=== PATIENT | male | born 1945 | race Caucasian/White ===

== ENCOUNTER → 2017-07-23 17:56 | Outpatient (CLI) | payer OTHER, MEDICARE, SELFPAY ==
[2017-07-23 18:29] LABS: Hematocrit 38.4 % (41-53); Mean Corpuscular HGB Conc 33.8 % (30-36); Mean Corpuscular Hemoglobin 29.2 PG (26-34); Mean Corpuscular Volume 86.3 fL (80-100); Platelet Count 156 X10^3/uL (150-400); Red Blood Cell Count 4.45 X10^6/uL (4.5-5.9); Red Cell Distribution Width 13.4 % (11.6-14.8)
[2017-07-23 18:44] LABS: Neutrophils Absolute Manual 5320 /uL (3000-5900); Total Cells Counted 100
[2017-07-23 18:45] LABS: Smudge Cells 3+
[2017-07-23 18:46] LABS: Anisocytosis 1+
[2017-07-23 19:07] LABS: Lactate Dehydrogenase 455 U/L (313-618)
== END ==
PROVIDERS: Family Provider Family Medicine; PCP Family Medicine; Visit Provider Internal Medicine Hematology & Oncology
DX: C91.10 Chronic lymphocytic leukemia of B-cell type not having achieved remission (principal)
CPT/HCPCS: 36415; 83615; 85025

== ENCOUNTER → 2017-10-26 16:50 | Outpatient (CLI) | payer OTHER, MEDICARE, SELFPAY ==
[2017-10-26 18:00] LABS: Hematocrit 40.1 % (41-53); Hemoglobin 13.3 g/dL (13.5-17.5); Mean Corpuscular HGB Conc 33.1 % (30-36); Mean Corpuscular Hemoglobin 29.2 PG (26-34); Mean Corpuscular Volume 88.2 fL (80-100); Platelet Count 189 X10^3/uL (150-400); Red Blood Cell Count 4.55 X10^6/uL (4.5-5.9)
[2017-10-26 18:15] LABS: Lactate Dehydrogenase 439 U/L (313-618)
[2017-10-26 19:02] LABS: Smudge Cells 2+; Total Cells Counted 100
[2017-10-26 19:03] LABS: RBC Morphology Normal Morphology
[2017-10-26 19:08] LABS: Neutrophils Absolute Manual 4587 /uL (3000-5900); White Blood Cell Count 41.7 X10^3/uL (4.5-11.0)
== END ==
PROVIDERS: Family Provider Family Medicine; PCP Family Medicine; Visit Provider Internal Medicine Hematology & Oncology
DX: C91.90 Lymphoid leukemia, unspecified not having achieved remission (principal)
CPT/HCPCS: 36415; 82784; 83615; 85025

== ENCOUNTER → 2018-01-29 16:34 | Outpatient (CLI) | payer OTHER, MEDICARE, SELFPAY ==
[2018-01-29 18:03] LABS: Alanine Aminotransferase 34 IU/L (21-72); Albumin 4.5 g/dL (3.5-5.0); Albumin Globulin Ratio 1.7 (1.0-2.8); Alkaline Phosphatase 94 U/L (38-126); Aspartate Aminotransferase 33 IU/L (17-59); Bilirubin Total 0.6 mg/dL (0.2-1.3); Blood Urea Nitrogen 24 mg/dL (9-20); Calcium 9.3 mg/dL (8.4-10.2); Carbon Dioxide 25 mmol/L (22-32); Chloride 104 mmol/L (98-107); Estimated Glomerular Filt Rate > 60.0 mL/min (>60); Globulin 2.7 g/dL (1.7-4.1); Glucose 94 mg/dL (80-110); HEMOLYSIS < 15 (0-50); Lactate Dehydrogenase 414 U/L (313-618); Potassium 4.2 mmol/L (3.4-5.1); Sodium 142 mmol/L (137-145); Total Protein 7.2 g/dL (6.3-8.2)
[2018-01-29 18:20] LABS: Hematocrit 41.5 % (41-53); Hemoglobin 13.6 g/dL (13.5-17.5); Mean Corpuscular HGB Conc 32.7 % (30-36); Mean Corpuscular Volume 88.5 fL (80-100); Platelet Count 207 X10^3/uL (150-400); Red Blood Cell Count 4.69 X10^6/uL (4.5-5.9); Red Cell Distribution Width 13.5 % (11.6-14.8)
[2018-01-29 18:47] LABS: White Blood Cell Count 47.3 X10^3/uL (4.5-11.0)
[2018-01-29 18:48] LABS: Add Manual Diff / Slide Review YES
[2018-01-29 18:49] LABS: Neutrophils Absolute Manual 6149 /uL (3000-5900); RBC Morphology Normal Morphology; Smudge Cells 2+; Total Cells Counted 100
== END ==
PROVIDERS: Internal Medicine Hematology & Oncology; Family Provider Family Medicine; PCP Student in an Organized Health Care Education/Training Program
DX: C91.90 Lymphoid leukemia, unspecified not having achieved remission (principal)
CPT/HCPCS: 36415; 80053; 82784; 83615; 85025

== ENCOUNTER → 2018-04-26 16:45 | Outpatient (CLI) | payer OTHER, MEDICARE, SELFPAY ==
[2018-04-26 19:33] LABS: Hematocrit 42.4 % (41-53); Hemoglobin 13.9 g/dL (13.5-17.5); Mean Corpuscular HGB Conc 32.8 % (30-36); Mean Corpuscular Hemoglobin 28.9 PG (26-34); Mean Corpuscular Volume 87.9 fL (80-100); Platelet Count 164 X10^3/uL (150-400); Red Blood Cell Count 4.83 X10^6/uL (4.5-5.9); Red Cell Distribution Width 13.3 % (11.6-14.8)
[2018-04-26 19:36] LABS: Alanine Aminotransferase 55 IU/L (21-72); Albumin 4.5 g/dL (3.5-5.0); Albumin Globulin Ratio 1.8 (1.0-2.8); Alkaline Phosphatase 106 U/L (38-126); Aspartate Aminotransferase 40 IU/L (17-59); BUN Creatinine Ratio 25.6 (6-22); Bilirubin Total 0.7 mg/dL (0.2-1.3); Blood Urea Nitrogen 23 mg/dL (9-20); Calcium 9.5 mg/dL (8.4-10.2); Carbon Dioxide 24 mmol/L (22-32); Chloride 103 mmol/L (98-107); Estimated Glomerular Filt Rate > 60.0 mL/min (>60); Globulin 2.5 g/dL (1.7-4.1); Glucose 87 mg/dL (80-110); HEMOLYSIS < 15 (0-50); Lactate Dehydrogenase 436 U/L (313-618); Potassium 4.3 mmol/L (3.4-5.1); Sodium 139 mmol/L (137-145)
[2018-04-26 19:54] LABS: Add Manual Diff / Slide Review YES
[2018-04-26 20:11] LABS: Neutrophils Absolute Manual 3208 /uL (3000-5900); RBC Morphology Normal Morphology; Smudge Cells 2+; Total Cells Counted 100
[2018-04-26 20:32] LABS: White Blood Cell Count 40.1 X10^3/uL (4.5-11.0)
== END ==
PROVIDERS: Family Provider Family Medicine; PCP Student in an Organized Health Care Education/Training Program; Visit Provider Internal Medicine Hematology & Oncology
DX: C91.90 Lymphoid leukemia, unspecified not having achieved remission (principal); N40.0 Benign prostatic hyperplasia without lower urinary tract symptoms
CPT/HCPCS: 36415; 80053; 82784; 83615; 84153; 85025

== ENCOUNTER → 2018-05-28 16:43 | Outpatient (CLI) | payer OTHER, MEDICARE, SELFPAY ==
[2018-05-28 18:37] LABS: Prostate Specific Antigen 4.45 ng/mL (0.10-4.00)
== END ==
PROVIDERS: Family Provider Family Medicine; PCP Student in an Organized Health Care Education/Training Program; Visit Provider Student in an Organized Health Care Education/Training Program
DX: R97.20 Elevated prostate specific antigen [PSA] (principal)
CPT/HCPCS: 36415; 84153

== ENCOUNTER → 2018-08-08 15:40 | Outpatient (CLI) | payer OTHER, MEDICARE, SELFPAY ==
[2018-08-08 16:40] LABS: Hematocrit 37.4 % (41-53); Hemoglobin 12.5 g/dL (13.5-17.5); Mean Corpuscular HGB Conc 33.5 % (30-36); Mean Corpuscular Hemoglobin 28.7 PG (26-34); Mean Corpuscular Volume 85.6 fL (80-100); Platelet Count 204 X10^3/uL (150-400); Red Blood Cell Count 4.37 X10^6/uL (4.5-5.9); Red Cell Distribution Width 13.2 % (11.6-14.8)
[2018-08-08 16:47] LABS: Add Manual Diff / Slide Review YES
[2018-08-08 16:48] LABS: White Blood Cell Count 40.5 X10^3/uL (4.5-11.0)
[2018-08-08 17:19] LABS: Neutrophils Absolute Manual 6075 /uL (3000-5900); RBC Morphology Normal Morphology; Smudge Cells 3+; Total Cells Counted 100
== END ==
PROVIDERS: Family Provider Family Medicine; PCP Student in an Organized Health Care Education/Training Program; Visit Provider Student in an Organized Health Care Education/Training Program
DX: C61 Malignant neoplasm of prostate (principal); C91.00 Acute lymphoblastic leukemia not having achieved remission
CPT/HCPCS: 36415; 85025

== ENCOUNTER → 2018-09-27 15:49 | Outpatient (CLI) | payer OTHER, MEDICARE, SELFPAY ==
[2018-09-27 19:11] LABS: Prostate Specific Antigen < 0.064 ng/mL (0.10-4.00)
== END ==
PROVIDERS: Family Provider Family Medicine; PCP Student in an Organized Health Care Education/Training Program; Visit Provider Student in an Organized Health Care Education/Training Program
DX: C61 Malignant neoplasm of prostate (principal); R97.20 Elevated prostate specific antigen [PSA]
CPT/HCPCS: 36415; 84153

== ENCOUNTER → 2018-11-08 16:51 | Outpatient (CLI) | payer OTHER, MEDICARE, SELFPAY ==
[2018-11-08 17:47] LABS: Hematocrit 38.7 % (41-53); Hemoglobin 13.1 g/dL (13.5-17.5); Mean Corpuscular HGB Conc 33.7 % (30-36); Mean Corpuscular Hemoglobin 28.9 PG (26-34); Mean Corpuscular Volume 85.7 fL (80-100); Platelet Count 192 X10^3/uL (150-400); Red Blood Cell Count 4.52 X10^6/uL (4.5-5.9); Red Cell Distribution Width 13.8 % (11.6-14.8)
[2018-11-08 18:01] LABS: Lactate Dehydrogenase 409 U/L (313-618)
[2018-11-08 18:33] LABS: Prostate Specific Antigen < 0.064 ng/mL (0.10-4.00)
[2018-11-08 18:56] LABS: Add Manual Diff / Slide Review YES; White Blood Cell Count 36.6 X10^3/uL (4.5-11.0)
[2018-11-08 18:57] LABS: RBC Morphology Normal Morphology
[2018-11-08 18:58] LABS: Smudge Cells 2+
[2018-11-08 18:59] LABS: Neutrophils Absolute Manual 3660 /uL (3000-5900); Total Cells Counted 100
== END ==
PROVIDERS: PCP Student in an Organized Health Care Education/Training Program; Visit Provider Internal Medicine Hematology & Oncology
DX: C91.90 Lymphoid leukemia, unspecified not having achieved remission (principal)
CPT/HCPCS: 36415; 83615; 84153; 85025

== ENCOUNTER → 2018-12-26 11:43 | Outpatient (CLI) | payer OTHER, MEDICARE, SELFPAY ==
[2018-12-26 14:17] LABS: Prostate Specific Antigen < 0.064 ng/mL (0.10-4.00)
== END ==
PROVIDERS: Family Provider Internal Medicine Hematology & Oncology; PCP Student in an Organized Health Care Education/Training Program; Visit Provider Student in an Organized Health Care Education/Training Program
DX: C61 Malignant neoplasm of prostate (principal)
CPT/HCPCS: 36415; 84153

== ENCOUNTER 2018-12-26 16:00 | Outpatient (RCR) | payer OTHER, MEDICARE, SELFPAY ==
--- NOTE | 2018-12-14 11:29 | PT.OIE ---
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) Urgency of urination (12/05/18) Functional urinary incontinence (12/05/18) Past Medical History (Last Updated 01/01/18 @ 10:18 by Hiral Hu) Chicken pox (Resolved 1949) Chronic headaches (Chronic 1944) CLL (chronic lymphocytic leukemia) (Chronic 1988) Diverticular disease (Chronic 1995) Fractures (Resolved 1992) Hayfever (Chronic 1960) Hypertension (Chronic 1990) Migraines (Chronic 1994) Mumps (Resolved 1949) Ruptured tympanic membrane (Resolved 1990) Shoulder pain (Chronic 1980) Past Surgical History (Last Updated 12/13/18 @ 08:39 by Larissa Newell MA) Anesthesia (Resolved) History of bowel resection (Resolved 2003) History of colonoscopy with polypectomy (Resolved 11/28/16) History of hernia repair (Resolved ~1984) History of surgery (Resolved ~1993) Hx of prostatectomy (Acute) Status post appendectomy (Resolved 2003) Visit Care Team Role Provider Type Jared Arteaga MD Primary Care Provider Physician Specialty: Internal Medicine Address: [address] [place] [address], [address], [address] Email: [email or web address] Jorge Teague Attending Provider Non-Staff Specialty: Urology Address: [address] [place] [address], [id number] Email: Physical Therapy Initial Evaluation PT-OP-A Visit Information Start: 12/11/18 11:01 Freq: Status: Active Protocol: Document 12/05/18 16:00 [facility] (Rec: 12/11/18 11:30 [facility] [email or web address]) Out-Patient Physical Therapy Visit Information Visit Information Visit Type Initial Evaluation Visit Note 73 year old male s/p prostatectomty August 2018 with resulting urinary leakage Visit Start Time 16:00 Visit Stop Time 16:45 Total Visit Minutes 45 Visit Number 1 Evaluation Information Evaluation Date 12/05/18 PT-OP-B Current Condition Start: 12/11/18 11:01 Freq: Status: Active Protocol: Document 12/05/18 16:00 [facility] (Rec: 12/11/18 11:30 [facility] [email or web address]) Current Condition History of Current Condition Onset Date September 2018 Current Complaints urinary leakage that is intermittent in nature History of Current Condition Symptoms of urinary leakage that began in September of 2018 following radical prostatectomy. He notes that his symptoms have been improving as now he is primarily leaking in standing position. 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 He is noting that symptoms are better now in supine or sitting. He has been using 1 pad her day and he does leak occasionally at night. He has been doing pelvic floor exercises but holding only 4 seconds. His current voiding is every hour but he reports this is always the way it has been with his bladder. Other past medical history includes CLL, elevated blood pressure and hernia Treatment Goals Patient/Caregiver Goals To eliminate urinary leakage Prior Functional Status Baseline Function- ADL's Independent Baseline Function- Mobility Independent Baseline Function- Work/School urinary leakage with work related activities Current Functional Impairments (Reported) Functional Limitations- Work/School leaking with work related activities as a diesel electrician especially with bending and transitional movements PT-OP-I Pelvic Floor Start: 12/11/18 11:01 Freq: Status: Active Protocol: Document 12/05/18 16:00 [facility] (Rec: 12/11/18 11:30 [facility] [email or web address]) Pelvic Floor Assessment Urine Pelvic Floor Surgery radical prostatectomy Urinary Symptoms Dysuria,Urge Sensation Other Urinary Symptoms leakage with activity, waking 3 times per night to void Leakage Size Medium Leakage Cause Cough,Exercise,Lifting Leaks Per Day intermittent Voiding Frequency every hour Nocturia 3 times Urine Pad Type Depends Pelvic Clock Pelvic Clock Other external evaluation done today , Stalin is able to generate tension in the anterior pelvis with a pelvic floor contraction however his endurance is limited to 4-5 seconds only. He fatigues following 5-6 contractions of his pelvic floor Contraction Ability Voluntary Contraction Weak Voluntary Relaxation Weak Muscle Endurance (Seconds) 4 Number of Quick Contractions In 10 5 Seconds Comments Pelvic Floor Comments Stalin is limited with his pelvic floor endurance, he is able to contract x 5 seconds and then looses his pelvic floor contraction with palpated in the suprapubic region. He is fatigued following 5 reps PT-OP-M Strength Start: 12/11/18 11:01 Freq: Status: Active Protocol: Document 12/05/18 16:00 [facility] (Rec: 12/11/18 11:30 [facility] [email or web address]) Trunk Strength Trunk Manual Muscle Testing Core Stabilization pt tends to push out his lower abdominal muscles performing a valsalva with initial pelvic floor contraction attempt Hip Strength Hip Manual Muscle Testing Right Abduction 3+ Fair+ External Rotation 3+ Fair+ Left Abduction 3+ Fair+ External Rotation 3+ Fair+ PT-OP-Q Treatments Start: 12/14/18 11:25 Freq: Status: Active Protocol: Document 12/05/18 16:00 [facility] (Rec: 12/14/18 11:27 [facility] [email or web address]) Therapeutic Exercises Supine Exercises 1 Supine Exercise Name pelvic long holds 10 second on 10 seconds off Reps/Minutes 10 reps 2-3 times per day Sidelying Exercises 1 Sidelying Exercise Name clam shells Side bilateral Reps/Minutes 3 x 10 reps PT-OP-T Assessment and Plan Start: 12/11/18 11:01 Freq: Status: Active Protocol: Document 12/05/18 16:00 [facility] (Rec: 12/11/18 11:30 [facility] [email or web address]) Physical Therapy Assessment Rehab Potential Rehabilitation Potential Excellent Evaluation Complexity Number of Personal Factors/Comorbidities 0 Number of Body Systems Impaired 1-2 Clinical Presentation at Evaluation Stable Impairments Impairments Activity Tolerance,Functional Activities,Strength Other Impairments urinary leakage with activity Goals Three Impairment Stalin is voiding 20+ times per day and wakes 3 times at night to void Short Term Goal (STG) Stalin is educated on bladder retraining and is able to delay the need to void to every 1.5-2 hours STG Duration 5-6 weeks Two Impairment Decreased endurance of the pelvic floor muscles to 4 second hold time Short Term Goal (STG) Stalin is educated on pelvic floor exercises for endurance and is able to sustain a contraction for 10 seconds in supine STG Duration 4 weeks Admissions Consultant Goal (LTG) Stalin is able to sustain a contraction of his pelvic floor x 10 seconds in standing LTG Duration 8 weeks One Impairment Urinary leakage and pelvic floor weakness s/p prostatectomy Alf Goal (LTG) Stalin is able to strengthen his pelvic floor to eliminate urinary leakage both during the day and at night LTG Duration 8 weeks Assessment Summary Assessment Stalin presents to physical therapy today with signs and symptoms consistent with urinary leakage following his prostatectomy in September 2018. He does report that he leakage has been slowly decreasing with time. His chief complaint is that he will leak when he is working as a diesel electrician. He notes it is when he is not mind full of engaging his pelvic floor when he is working that symptoms will occur. He is using 1 pad per day and sometimes will also have to change his pad at night. He is voiding 1 xm per hour and wakes 3 times at night to void. He reports this is his norm and he has voiding frequently like this for a long time. He has been doing his pelvic floor exercises but he has been holding for only 4 seconds at home. He will benefit from increasing his hold time to work on the slow twitch muscle fibers of the levator ani. Treatment will also focus on abdominal stabilization and utilizing his core muscles with functional activity. Stalin is a good candidate for PT Physical Therapy Plan Frequency and Duration Frequency of Treatment 1x/Week Duration of Treatment 8 weeks Plan of Care Start Date 12/05/18 Plan of Care End Date 01/30/19 Therapeutic Interventions Therapeutic Interventions Home Exercise Program,Manual Therapy,Neuromuscular Re- education,Patient/Caregiver Education,Self-Care/Home Management,Soft Tissue Mobilization,Therapeutic Exercises Next Visit Focus/Plan Next Note Type Treatment Note Next Visit Plan Trial of EMG biofeedback next visit working on improved recruitment of the levator ani and endurance of the levator ani. Begin pelvic floor contractions with sit-stand activities
--- NOTE | 2018-12-26 17:55 | PT.OTN ---
Current Diagnoses Pelvic muscle wasting (12/26/18) Urgency of urination (12/26/18) Functional urinary incontinence (12/26/18) Physical Therapy Treatment Note PT-OP-A Visit Information Start: 12/11/18 11:01 Freq: Status: Active Protocol: Document 12/26/18 16:00 [facility] (Rec: 12/29/18 17:55 [facility] [email or web address]) Out-Patient Physical Therapy Visit Information Visit Information Visit Type Treatment Note Visit Start Time 16:00 Visit Stop Time 16:30 Total Visit Minutes 30 Visit Number 2 PT-OP-B Current Condition Start: 12/11/18 11:01 Freq: Status: Active Protocol: Document 12/05/18 16:00 [facility] (Rec: 12/11/18 11:30 [facility] [email or web address]) Current Condition History of Current Condition Onset Date September 2018 Current Complaints urinary leagae that is intermittent in nature History of Current Condition Symptoms of urinary leakage that began in September of 2018 following radical prostatectomy. He notes that his symptoms have been improving as now he is primarily leaking in standing position. 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 He is noting that symptoms are better now in supine or sitting. He has been using 1 pad her day and he does leak occasionally at night. He has been doing pelvic floor exercises but holding only 4 seconds. His current voiding is every hour but he reports this is always the way it has been with his bladder. 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 He has increased his exercises to include the long holds of 10 seconds and added in clam shells. He reports he is no longer leaking at night and very little during the day now . PT-OP-I Pelvic Floor Start: 12/11/18 11:01 Freq: Status: Active Protocol: Document 12/05/18 16:00 [facility] (Rec: 12/11/18 11:30 [facility] [email or web address]) Pelvic Floor Assessment Urine Pelvic Floor Surgery radical prostatectomy Urinary Symptoms Dysuria,Urge Sensation Other Urinary Symptoms leakage with activity, waking 3 times per night to void Leakage Size Medium Leakage Cause Cough,Exercise,Lifting Leaks Per Day intermittent Voiding Frequency every hour Nocturia 3 times Urine Pad Type Depends Pelvic Clock Pelvic Clock Other external evaluation done today , Stalin is able to generate tension in the anterior pelvis with a pelvic floor contraction however his endurance is limited to 4-5 seconds only. He fatigues following 5-6 contractions of his pelvic floor Contraction Ability Voluntary Contraction Weak Voluntary Relaxation Weak Muscle Endurance (Seconds) 4 Number of Quick Contractions In 10 5 Seconds Comments Pelvic Floor Comments Stalin is limited with his pelvic floor endurance, he is able to contract x 5 seconds and then looses his pelvic floor contraction with palpated in the suprapubic region. He is fatigued following 5 reps PT-OP-M Strength Start: 12/11/18 11:01 Freq: Status: Active Protocol: Document 12/05/18 16:00 [facility] (Rec: 12/11/18 11:30 [facility] [email or web address]) Trunk Strength Trunk Manual Muscle Testing Core Stabilization pt tends to push out his lower abdominal muscles performing a valsalva with initial pelvic floor contraction attempt Hip Strength Hip Manual Muscle Testing Right Abduction 3+ Fair+ External Rotation 3+ Fair+ Left Abduction 3+ Fair+ External Rotation 3+ Fair+ PT-OP-Q Treatments Start: 12/14/18 11:25 Freq: Status: Active Protocol: Document 12/26/18 16:00 [facility] (Rec: 12/29/18 17:55 [facility] [email or web address]) Therapeutic Exercises Standing Exercises 2 Standing Exercise Name sit to stand exercise Reps/Minutes 2 x 10 reps 1 Standing Exercise Name standing pelvic floor isolations Reps/Minutes x 10 reps Comments 10 second holds Self-Care/Home Management Treatment Education Patient Education Home Exercise Program Other Education worked on pelvic floor engagement with lifting and with sit-stand PT-OP-T Assessment and Plan Start: 12/11/18 11:01 Freq: Status: Active Protocol: Document 12/26/18 16:00 [facility] (Rec: 12/29/18 17:55 [facility] [email or web address]) Physical Therapy Assessment Goals Three Impairment Stalin is voiding 20+ times per day and wakes 3 times at night to void Short Term Goal (STG) Stalin is educated on bladder retraining and is able to delay the need to void to every 1.5-2 hours Pt reports he still voids very frequently and this is the way he has been for years now even before his prostate cancer. He is staying dry at night now STG Duration 5-6 weeks Two Impairment Decreased endurance of the pelvic floor muscles to 4 second hold time Short Term Goal (STG) Stalin is educated on pelvic floor exercises for endurance and is able to sustain a contraction for 10 seconds in supine GOAL MET STG Duration 4 weeks Supply Chain Engineer Goal (LTG) Stalin is able to sustain a contraction of his pelvic floor x 10 seconds in standing Pt educated in standing pelvic floor isolations x 10 seconds and he could do this today with good awareness of his pelvic floor LTG Duration 8 weeks One Impairment Urinary leakage and pelvic floor weakness s/p prostatectomy Supply Chain Engineer Goal (LTG) Stalin is able to strengthen his pelvic floor to eliminate urinary leakage both during the day and at night No longer leaking at night and significant decrease during the day LTG Duration 8 weeks Assessment Summary Assessment Stalin reports he is no longer leaking at night and very little during the day. I progressed his exercises to include standing pelvic floor squeeze today, gave education about pelvic floor engagement prior to lifting and added in pelvic floor isolations with sit to stand. Stalin demonstrates good awareness with is home program and is very happy with his results. He will be dishcarged at this time to a independent home program Physical Therapy Plan Discharge Physical Therapy Discharge Reasons Goals Met Discharge Comments Pt is independent with a home program and symptoms have improved
--- NOTE | 2018-12-29 17:55 | PT.OPDS ---
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 Jorge Teague Attending Provider Non-Staff Specialty: Urology Address: [address] [place] [address], [phone] Email: Visit Number Visit Number 2 Discharge Summary PT-OP-B Current Condition Start: 12/11/18 11:01 Freq: Status: Active Protocol: Document 12/05/18 16:00 [facility] (Rec: 12/11/18 11:30 [facility] [email or web address]) Current Condition History of Current Condition Onset Date September 2018 Current Complaints urinary leagae that is intermittent in nature History of Current Condition Symptoms of urinary leakage that began in September of 2018 following radical prostatectomy. He notes that his symptoms have been improving as now he is primarily leaking in standing position. 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 He is noting that symptoms are better now in supine or sitting. He has been using 1 pad her day and he does leak occasionally at night. He has been doing pelvic floor exercises but holding only 4 seconds. His current voiding is every hour but he reports this is always the way it has been with his bladder. 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 He has increased his exercises to include the long holds of 10 seconds and added in clam shells. He reports he is no longer leaking at night and very little during the day now . PT-OP-I Pelvic Floor Start: 12/11/18 11:01 Freq: Status: Active Protocol: Document 12/05/18 16:00 [facility] (Rec: 12/11/18 11:30 [facility] [email or web address]) Pelvic Floor Assessment Urine Pelvic Floor Surgery radical prostatectomy Urinary Symptoms Dysuria,Urge Sensation Other Urinary Symptoms leakage with activity, waking 3 times per night to void Leakage Size Medium Leakage Cause Cough,Exercise,Lifting Leaks Per Day intermittent Voiding Frequency every hour Nocturia 3 times Urine Pad Type Depends Pelvic Clock Pelvic Clock Other external evaluation done today , Stalin is able to generate tension in the anterior pelvis with a pelvic floor contraction however his endurance is limited to 4-5 seconds only. He fatigues following 5-6 contractions of his pelvic floor Contraction Ability Voluntary Contraction Weak Voluntary Relaxation Weak Muscle Endurance (Seconds) 4 Number of Quick Contractions In 10 5 Seconds Comments Pelvic Floor Comments Stalin is limited with his pelvic floor endurance, he is able to contract x 5 seconds and then looses his pelvic floor contraction with palpated in the suprapubic region. He is fatigued following 5 reps PT-OP-M Strength Start: 12/11/18 11:01 Freq: Status: Active Protocol: Document 12/05/18 16:00 [facility] (Rec: 12/11/18 11:30 [facility] [email or web address]) Trunk Strength Trunk Manual Muscle Testing Core Stabilization pt tends to push out his lower abdominal muscles performing a valsalva with initial pelvic floor contraction attempt Hip Strength Hip Manual Muscle Testing Right Abduction 3+ Fair+ External Rotation 3+ Fair+ Left Abduction 3+ Fair+ External Rotation 3+ Fair+ PT-OP-T Assessment and Plan Start: 12/11/18 11:01 Freq: Status: Active Protocol: Document 12/26/18 16:00 [facility] (Rec: 12/29/18 17:55 [facility] [email or web address]) Physical Therapy Assessment Goals Three Impairment Stalin is voiding 20+ times per day and wakes 3 times at night to void Short Term Goal (STG) Stalin is educated on bladder retraining and is able to delay the need to void to every 1.5-2 hours Pt reports he still voids very frequently and this is the way he has been for years now even before his prostate cancer. He is staying dry at night now STG Duration 5-6 weeks Two Impairment Decreased endurance of the pelvic floor muscles to 4 second hold time Short Term Goal (STG) Stalin is educated on pelvic floor exercises for endurance and is able to sustain a contraction for 10 seconds in supine GOAL MET STG Duration 4 weeks Halfway Goal (LTG) Stalin is able to sustain a contraction of his pelvic floor x 10 seconds in standing Pt educated in standing pelvic floor isolations x 10 seconds and he could do this today with good awareness of his pelvic floor LTG Duration 8 weeks One Impairment Urinary leakage and pelvic floor weakness s/p prostatectomy Halfway Goal (LTG) Stalin is able to strengthen his pelvic floor to eliminate urinary leakage both during the day and at night No longer leaking at night and significant decrease during the day LTG Duration 8 weeks Assessment Summary Assessment Stalin reports he is no longer leaking at night and very little during the day. I progressed his exercises to include standing pelvic floor squeeze today, gave education about pelvic floor engagement prior to lifting and added in pelvic floor isolations with sit to stand. Stalin demonstrates good awareness with is home program and is very happy with his results. He will be discharged at this time to a independent home program Physical Therapy Plan Discharge Physical Therapy Discharge Reasons Goals Met Discharge Comments Pt is independent with a home program and symptoms have improved
== END 2019-01-01 15:33 | disposition home or self-care (01) ==
LOC: PHYS 16:00
PROVIDERS: PCP Student in an Organized Health Care Education/Training Program; Visit Provider Student in an Organized Health Care Education/Training Program
DX: R39.15 Urgency of urination (principal); R39.81 Functional urinary incontinence
CPT/HCPCS: 97110; 97112; 97161; 97535

== ENCOUNTER → 2019-02-19 16:41 | Outpatient (CLI) | payer OTHER, MEDICARE, SELFPAY ==
[2019-02-19 18:09] LABS: Hematocrit 41.6 % (41-53); Hemoglobin 13.8 g/dL (13.5-17.5); Mean Corpuscular HGB Conc 33.1 % (30-36); Mean Corpuscular Hemoglobin 28.7 PG (26-34); Mean Corpuscular Volume 86.8 fL (80-100); Platelet Count 183 X10^3/uL (150-400); Red Cell Distribution Width 13.3 % (11.6-14.8)
[2019-02-19 18:41] LABS: Neutrophils Absolute Manual 6080 /uL (3000-5900); RBC Morphology Normal Morphology; Total Cells Counted 100
[2019-02-19 18:46] LABS: Lactate Dehydrogenase 372 U/L (313-618)
== END ==
PROVIDERS: Family Provider Internal Medicine Hematology & Oncology; PCP Student in an Organized Health Care Education/Training Program; Visit Provider Internal Medicine Hematology & Oncology
DX: C91.90 Lymphoid leukemia, unspecified not having achieved remission (principal)
CPT/HCPCS: 36415; 83615; 85025

== ENCOUNTER → 2019-06-11 16:40 | Outpatient (CLI) | payer OTHER, MEDICARE, SELFPAY ==
[2019-06-11 17:35] LABS: Hematocrit 39.3 % (41-53); Mean Corpuscular HGB Conc 33.1 % (30-36); Mean Corpuscular Hemoglobin 28.9 PG (26-34); Mean Corpuscular Volume 87.2 fL (80-100); Platelet Count 173 X10^3/uL (150-400); Red Blood Cell Count 4.51 X10^6/uL (4.5-5.9); Red Cell Distribution Width 13.3 % (11.6-14.8)
[2019-06-11 17:40] LABS: Add Manual Diff / Slide Review YES; Lactate Dehydrogenase 341 U/L (313-618)
[2019-06-11 17:49] LABS: White Blood Cell Count 33.5 X10^3/uL (4.5-11.0)
[2019-06-11 18:12] LABS: Neutrophils Absolute Manual 6030 /uL (3000-5900); Total Cells Counted 100
[2019-06-11 18:13] LABS: Anisocytosis 1+
[2019-06-11 18:14] LABS: Prostate Specific Antigen Scrn < 0.064 ng/mL (0.1-4.0)
== END ==
PROVIDERS: Family Provider Internal Medicine Hematology & Oncology; PCP Student in an Organized Health Care Education/Training Program; Referring Provider Internal Medicine Hematology & Oncology; Visit Provider Internal Medicine Hematology & Oncology
DX: C91.90 Lymphoid leukemia, unspecified not having achieved remission (principal)
CPT/HCPCS: 36415; 83615; 85025; G0103

== ENCOUNTER → 2019-07-16 16:41 | Outpatient (CLI) | payer OTHER, MEDICARE, SELFPAY ==
[2019-07-16 18:24] LABS: Prostate Specific Antigen < 0.064 ng/mL (0.10-4.00)
== END ==
PROVIDERS: Family Provider Internal Medicine Hematology & Oncology; PCP Student in an Organized Health Care Education/Training Program; Referring Provider Student in an Organized Health Care Education/Training Program; Visit Provider Student in an Organized Health Care Education/Training Program
DX: C61 Malignant neoplasm of prostate (principal); R97.20 Elevated prostate specific antigen [PSA]
CPT/HCPCS: 36415; 84153

== ENCOUNTER → 2019-10-20 16:43 | Outpatient (CLI) | payer OTHER, MEDICARE, SELFPAY ==
[2019-10-20 18:13] LABS: Alanine Aminotransferase 24 IU/L (<50); Albumin 4.1 g/dL (3.5-5.0); Albumin Globulin Ratio 1.7 (1.0-2.8); Alkaline Phosphatase 86 U/L (38-126); Aspartate Aminotransferase 34 IU/L (17-59); BUN Creatinine Ratio 34.5 (6-22); Bilirubin Total 0.7 mg/dL (0.2-1.3); Blood Urea Nitrogen 29 mg/dL (9-20); Calcium 9.3 mg/dL (8.4-10.2); Carbon Dioxide 24 mmol/L (22-32); Chloride 108 mmol/L (98-107); Estimated Glomerular Filt Rate > 60.0 mL/min (>60); Globulin 2.4 g/dL (1.7-4.1); Glucose 87 mg/dL (80-110); HEMOLYSIS < 15 (0-50); Potassium 4.3 mmol/L (3.4-5.1); Sodium 138 mmol/L (137-145); Total Protein 6.5 g/dL (6.3-8.2)
[2019-10-20 18:33] LABS: Hematocrit 38.5 % (41-53); Mean Corpuscular HGB Conc 33.7 % (30-36); Mean Corpuscular Hemoglobin 29.5 PG (26-34); Mean Corpuscular Volume 87.4 fL (80-100); Platelet Count 170 X10^3/uL (150-400); Red Blood Cell Count 4.41 X10^6/uL (4.5-5.9); Red Cell Distribution Width 13.8 % (11.6-14.8)
[2019-10-20 18:44] LABS: Prostate Specific Antigen Scrn < 0.064 ng/mL (0.1-4.0)
[2019-10-20 21:49] LABS: Add Manual Diff / Slide Review YES
[2019-10-20 21:50] LABS: Total Cells Counted 100
[2019-10-20 21:51] LABS: Neutrophils Absolute Manual 15729 /uL (3000-5900); RBC Morphology Normal Morphology; Smudge Cells 2+
[2019-10-20 22:10] LABS: White Blood Cell Count 32.1 X10^3/uL (4.5-11.0)
== END ==
PROVIDERS: Family Provider Internal Medicine Hematology & Oncology; PCP Student in an Organized Health Care Education/Training Program
DX: C91.10 Chronic lymphocytic leukemia of B-cell type not having achieved remission (principal); C61 Malignant neoplasm of prostate
CPT/HCPCS: 36415; 80053; 85025; G0103

== ENCOUNTER → 2019-12-11 15:04 | Outpatient (CLI) | payer OTHER, MEDICARE, SELFPAY ==
--- NOTE | 2019-12-11 15:07 | DI.US.S_ITS ---
PROCEDURE: US SCROTUM INDICATIONS: Mass of scrotum on right TECHNIQUE: Real-time scanning was performed of the scrotum and testicles, with image documentation. Color and pulse Doppler interrogation was performed of both testicles. COMPARISON: None. FINDINGS: Right: Testicle is normal in size at 4.2 x 2.2 x 3.1 cm, and homogenous in echotexture. Epididymis is normal in overall size and morphology. No hydrocele or varicoceles. Overlying scrotal skin is normal in thickness. The area that corresponds to the patient's palpable abnormality contains a few benign-appearing lymph nodes. No dominant focal mass. Left: Testicle is normal in size at 3.9 x 2.5 x 3.4 cm, and homogeneous in echotexture. 5 mm subcapsular anterior upper to midpole cyst. No solid testicular lesions. Epididymis is normal in overall size and morphology. No hydrocele or varicoceles. Overlying scrotal skin is normal in thickness. Doppler: Color and pulse Doppler demonstrate normal and symmetric arterial flow in both testicles. IMPRESSION: 1. Tender right inguinal lymph nodes correspond to the patient's mass. These are likely reactive. No suspicious sonographic features. 2. 5 mm left intratesticular cyst. 3. Otherwise normal scrotal ultrasound. Dictated by: Mago Elmore M.D. on 12/11/2019 at 17:48 Approved by: Mago Elmore M.D. on 12/11/2019 at 17:51
== END ==
PROVIDERS: Family Provider Internal Medicine Hematology & Oncology; PCP Student in an Organized Health Care Education/Training Program; Referring Provider Student in an Organized Health Care Education/Training Program; Visit Provider Student in an Organized Health Care Education/Training Program
DX: N50.89 Other specified disorders of the male genital organs (principal); R10.31 Right lower quadrant pain; N44.2 Benign cyst of testis
CPT/HCPCS: 76870

== ENCOUNTER → 2020-04-09 14:45 | Outpatient (CLI) | payer OTHER, MEDICARE, SELFPAY ==
[2020-04-09 15:20] LABS: Hematocrit 38.3 % (41-53); Hemoglobin 12.9 g/dL (13.5-17.5); Mean Corpuscular HGB Conc 33.6 % (30-36); Mean Corpuscular Hemoglobin 29.2 PG (26-34); Platelet Count 208 X10^3/uL (150-400); Red Cell Distribution Width 13.1 % (11.6-14.8)
[2020-04-09 15:25] LABS: Add Manual Diff / Slide Review YES; White Blood Cell Count 30.1 X10^3/uL (4.5-11.0)
[2020-04-09 15:51] LABS: Alanine Aminotransferase 20 IU/L (<50); Albumin 3.9 g/dL (3.5-5.0); Albumin Globulin Ratio 1.6 (1.0-2.8); Alkaline Phosphatase 99 U/L (38-126); Aspartate Aminotransferase 25 IU/L (17-59); BUN Creatinine Ratio 36.1 (6-22); Bilirubin Total 0.4 mg/dL (0.2-1.3); Blood Urea Nitrogen 26 mg/dL (9-20); Calcium 9.3 mg/dL (8.4-10.2); Carbon Dioxide 27 mmol/L (22-32); Chloride 105 mmol/L (98-107); Estimated Glomerular Filt Rate > 60.0 mL/min (>60); Globulin 2.4 g/dL (1.7-4.1); Glucose 91 mg/dL (80-110); HEMOLYSIS < 15 (0-50); Potassium 4.3 mmol/L (3.4-5.1); Sodium 138 mmol/L (137-145); Total Protein 6.3 g/dL (6.3-8.2)
[2020-04-09 16:06] LABS: Neutrophils Absolute Manual 4816 /uL (3000-5900); RBC Morphology Normal Morphology; Smudge Cells 1+; Total Cells Counted 100
== END ==
PROVIDERS: Family Provider Internal Medicine Hematology & Oncology; PCP Student in an Organized Health Care Education/Training Program; Referring Provider Internal Medicine; Visit Provider Internal Medicine
DX: C91.10 Chronic lymphocytic leukemia of B-cell type not having achieved remission (principal)
CPT/HCPCS: 36415; 80053; 85007; 85025

== ENCOUNTER → 2021-01-10 11:28 | Outpatient (CLI) | payer OTHER, MEDICARE, SELFPAY ==
[2021-01-10 12:13] LABS: COVID19 -Nasal RAPID Negative (Negative)
== END ==
PROVIDERS: Family Provider Internal Medicine Hematology & Oncology; PCP Student in an Organized Health Care Education/Training Program; Referring Provider Physician Assistant; Visit Provider Physician Assistant
DX: Z20.822 Contact with and (suspected) exposure to COVID-19 (principal); R43.0 Anosmia
CPT/HCPCS: 87635

== ENCOUNTER 2021-09-06 08:45 | Day surgery (SDC) | payer OTHER, MEDICARE, SELFPAY ==
--- NOTE | 2021-09-06 | PATH_ITS ---
[facility] Accession Number: [id number] . 01 Material submitted: . colon - ASCENDING COLON X2 . 01 Diagnosis: Ascending Colon, Polyp x2, Biopsies: Tubular adenomas. MRV 09/08/2021 1400 Local . 01 Electronically signed: . Zunilda Salazar MD, Pathologist NPI- [id number] . 01 Gross description: . Received in formalin in a specimen container labeled with the patient's name and ascending colon polyp is an aggregate of four pink soft tissue fragments that measure 0.6 x 0.6 x 0.4 cm. The specimen is entirely submitted in cassette A1. ([id number]) /MRV 09/07/2021 1833 Local . 01 Pathologist provided ICD-10: D12.2 . 01 CPT . 837295 Specimen Comment: A courtesy copy of this report has been sent to [phone] Performed at: 01 [facility] [address] [place] [address], [place], [place] [id number] MD Alexi Sol MD Phone: [phone]
[2021-09-06] MEDS: LACTATED RINGERS 1,000 ML 200 ML IV (09:32)
[2021-09-06 09:33] VITALS: BP 121/78; PULSE 78; RESP 16; TEMP 36.4; O2SAT 97; BMI 22.4
[2021-09-06 09:33] LABS: COVID19 -Nasal RAPID Negative (Negative)
--- NOTE | 2021-09-06 10:18 | P.HP_ITS ---
History of Present Illness History of Present Illness Date Patient Seen: 09/06/21 Time Patient Seen: 10:18 Chief complaint[place] [facility] [place] The patient presents for colorectal screening. Previous colonoscopy 5 years ago was notable for benign polyps. He has a history of diverticular disease status post sigmoid colectomy. No personal or family history of colon cancer. On further history denies any recent gastrointestinal symptoms. No nausea, vomiting, abdominal pain, loss of appetite, unexplained weight loss, change in bowel habits, diarrhea, constipation, melena, hematochezia, or bright red blood per rectum. Patient History Medical History Chicken pox (1949) Chronic headaches (1944) CLL (chronic lymphocytic leukemia) (1988) Diverticular disease (1995) Fractures (1992) Hayfever (1960) Hypertension (1990) Migraines (1994) Mumps (1949) Ruptured tympanic membrane (1990) Shoulder pain (1980) Surgical History Anesthesia History of bowel resection (2003) History of colonoscopy with polypectomy (11/28/16) History of hernia repair (~1984) History of surgery (~1993) Hx of prostatectomy Status post appendectomy (2003) Family & Social History Family History Mother Hypertension Grandfather Diabetes mellitus Grandmother Stroke Hypertension Father Bone cancer Grandfather No problems noted. Grandmother No problems noted. Sister Lung cancer Social History: household members none Tobacco & Substance use: Smoking Status Never smoker alcohol intake former Substance Use Type does not use Meds Home Medications and Allergies Home Medications Medication Instructions Recorded Confirmed Type acyclovir 800 mg tablet 800 mg PO TID 01/01/18 09/06/21 History apixaban 5 mg tablet (Eliquis) 5 mg PO BID 09/09/20 09/06/21 History losartan 100 mg tablet 100 mg PO QDAY #90 tabs 01/25/21 09/06/21 Rx Allergies Allergy/AdvReac Type Severity Reaction Status Date / Time ciprofloxacin Allergy Intermediate Hives Verified 09/06/21 09:16 adhesive Allergy Unknown Blisters Verified 09/06/21 09:16 sodium fluoride Allergy Unknown Blisters Verified 09/06/21 09:16 in mouth lisinopril AdvReac Mild COUGH Verified 09/06/21 09:16 metronidazole AdvReac Unknown Causes Verified 09/06/21 09:16 ulcers. Exam Vital Signs (past 8 hours): - 09/06/21 09:33 Temperature 97.5 F L Pulse Rate 78 Respiratory Rate 16 Blood Pressure 121/78 Pulse Oximetry 97 Oxygen Delivery Method Room Air Oxygen Delivery Method Room Air Narrative Exam Narrative: General adult male alert oriented no acute distress Abdomen soft nontender nondistended Extremities warm well perfused Objective Labs Labs: Laboratory Results - last 24 hr 09/06/21 09:10 SARS-CoV-2 (PCR) Negative Assessment & Plan Assessment & Plan narrative: The patient requires colorectal screening and colonoscopy is recommended. Technical details were discussed. Risks, benefits, alternatives explained. Risks including but not limited to myocardial infarction, aspiration, bleeding, pain, missed lesion, incomplete examination, need for further radiographic studies, colonic perforation, and need for major abdominal surgery were discussed. All questions were answered to their satisfaction, and they are in agreement with this plan. Time Spent With Patient Critical Care time: I spent a total of [] minutes of critical care time on this patient's care today; this time is exclusive of procedural time.
[2021-09-06] MEDS: MIDAZOLAM 5 MG/5 ML VIAL IV (10:43)
[2021-09-06] MEDS: fentaNYL 250 MCG/5 ML INJ 200 MCG IV (10:45)
--- NOTE | 2021-09-06 10:55 | PM.OP.COLON ---
Operative Date/Time/Diagnoses Date of procedure: 09/06/21 Time of procedure: 10:55 Pre-op diagnosis: Personal history of colonic polyps Post-op diagnosis: same Procedure & Clinicians Study performed: Colonoscopy Same procedure as scheduled: Yes Indications: Personal history of colonic polyps Surgeon: Dung Sweet Procedure Notes Procedure in detail: Medications: Conscious sedation using 5 mg IV midazolam and 200 mcg IV of fentanyl The history and physical was performed/updated and the patient is ASA class is 2. The procedure was discussed in detail with the patient. Potential risks complications including infection, bleeding, missed diagnosis, perforation, need for surgery, and were explained. Their questions were answered and informed consent was obtained. Patient was brought to the procedure room and placed standard monitoring equipment. The patient's vital signs were monitored continuously throughout the entire procedure. Prior to starting time-out was performed. The patient was placed in the left lateral recumbent position. Procedural sedation was administered. Examination began with a thorough inspection of the perianal area there was no evidence of fissures, fistulae, external hemorrhoids or cutaneous malignancy. The colonoscopy scope was then placed into the anal canal and was advanced to the cecum, which was identified by the ileocecal valve, the appendiceal orifice and the confluence of the taenia. The scope was then slowly withdrawn examining colon thoroughly in all directions, irrigating it of any residual stool. FINDINGS 1. Ascending colon 2x 5 mm polyps removed with biopsy forceps. 2. Kendrick Diverticulosis The patient tolerated the procedure well. They will be discharged once criteria are met. The prep was of good/excellent quality. The withdrawl time was 7 minutes. The sedation time was 17 minutes. Specimen(s): other (Ascending colon polyps) Complications: none Impression: Colonic polyps Post-procedure Recommendations: Colonoscopy in 5 years and High fiber diet Disposition: same day surgery
[2021-09-06 10:59] VITALS: BP 113/71; PULSE 74; RESP 12; TEMP 36.9; O2SAT 91
[2021-09-06 11:04] VITALS: BP 116/69; PULSE 79; RESP 16; O2SAT 91
[2021-09-06 11:09] VITALS: BP 106/65; PULSE 94; RESP 16; O2SAT 94
[2021-09-06 11:19] VITALS: BP 122/80; PULSE 87; RESP 16; O2SAT 94
--- NOTE | 2021-09-06 11:45 | SUR.PHASEII ---
Pt read go, ride not available for 25minutes, pt dressed, d/c instructions discussed, pt in chair awaiting ride.
[2021-09-06 11:47] VITALS: BP 105/72; PULSE 93; RESP 12; TEMP 36.6; O2SAT 96
== END 2021-09-06 12:10 | disposition home or self-care (01) ==
PROVIDERS: Family Provider Internal Medicine Hematology & Oncology; PCP Student in an Organized Health Care Education/Training Program; Referring Provider Surgery; Visit Provider Surgery
PROC: 0DJD8ZZ Inspection of Lower Intestinal Tract, Via Natural or Artificial Opening Endoscopic (ICD-10-PCS; CPT 45378; principal; 2021-09-06 10:15)
DX: Z12.11 Encounter for screening for malignant neoplasm of colon (principal); Z86.010 Personal history of colon polyps; K57.30 Diverticulosis of large intestine without perforation or abscess without bleeding; Z20.822 Contact with and (suspected) exposure to COVID-19; D12.2 Benign neoplasm of ascending colon
CPT/HCPCS: 45380; 87635; 99152; C9803; J2250; J3010

== ENCOUNTER → 2021-10-11 16:36 | Outpatient (CLI) | payer OTHER, MEDICARE, SELFPAY ==
[2021-10-11 18:07] LABS: BUN Creatinine Ratio 27.4 (6-22); Blood Urea Nitrogen 23 mg/dL (9-20); Carbon Dioxide 25 mmol/L (22-32); Chloride 107 mmol/L (98-107); Estimated Glomerular Filt Rate > 60 mL/min (>60); Glucose 92 mg/dL (80-110); HEMOLYSIS < 15 (0-50); Potassium 4.3 mmol/L (3.4-5.1); Sodium 136 mmol/L (137-145)
== END ==
PROVIDERS: Family Provider Internal Medicine Hematology & Oncology; PCP Student in an Organized Health Care Education/Training Program; Referring Provider Student in an Organized Health Care Education/Training Program; Visit Provider Student in an Organized Health Care Education/Training Program
DX: I10 Essential (primary) hypertension (principal)
CPT/HCPCS: 36415; 80048

== ENCOUNTER 2022-04-11 19:01 | Observation (INO) | payer OTHER, MEDICARE, SELFPAY ==
[2022-04-11] VITALS (25 sets, daily range): BP systolic 139–196; BP diastolic 71–91; PULSE 63–84; RESP 12–22; TEMP 36.8; O2SAT 93–99; BMI 22.4
--- NOTE | 2022-04-11 19:28 | DI.CT.S_ITS ---
PROCEDURE: CT STROKE INDICATIONS: left side weakness resolved TECHNIQUE: Noncontrast 4.5 mm thick angled axial sections acquired from the foramen magnum to the vertex, with coronal reformats. For radiation dose reduction, the following was used: automated exposure control, adjustment of mA and/or kV according to patient size. COMPARISON: None. FINDINGS: Image quality: Excellent. CSF spaces: Basal cisterns are patent. No extra-axial fluid collections. The ventricles are symmetric in size and shape. Brain: No intracranial bleeds or masses. There is cerebral volume loss for age, with resultant ventricular and sulcal prominence. There are periventricular and deep white matter chronic small vessel ischemic changes. There is intracranial internal carotid artery atherosclerosis. Skull and face: Calvarium and visualized facial bones appear intact, without suspicious lesions. Sinuses: Visualized sinuses and mastoids are clear. IMPRESSION: 1. No CT evidence of acute intracranial abnormalities. No contraindication to tPA therapy. 2. Age related volume loss and mild white matter chronic small vessel ischemic changes. Findings were reported to Dr. Corrales in the ER at 8:00 p.m. On 04/11/2022. This study fulfills neurological imaging criteria for inclusion or exclusion of acute stroke therapies based on available published neurological guidelines. Dictated by: John Kunz M.D. on 04/11/2022 at 19:57 Approved by: John Kunz M.D. on 04/11/2022 at 19:58
--- NOTE | 2022-04-11 19:29 | DI.CT.S_ITS ---
PROCEDURE: CT ANGIO HEAD AND NECK INDICATIONS: left side weakness resolved TECHNIQUE: After the administration of intravenous contrast, 1 mm thick sections acquired from the aortic arch through the [place] of [place]. Post-contrast 4.5 mm thick sections then re-acquired from the foramen magnum to the vertex. 3-dimensional cqzwmaj-mwbemgzbq-giiqvyzuov (MIP) and/or volume rendering reformats were acquired of the central intracranial vasculature and neck separately. For radiation dose reduction, the following was used: automated exposure control, adjustment of mA and/or kV according to patient size. COMPARISON: None. FINDINGS: Image quality: Excellent. BRAIN: CSF spaces: Small enhancing nodule is seen in left frontal extra-axial space consistent with a meningioma measures 6 mm in size. Ventricles are normal in size and shape. Basal cisterns are patent. No extra-axial fluid collections. Brain: No midline shift. No intracranial bleeds or masses. Reynolds-white matter interface appears intact. No area of abnormal intracranial enhancement is noted. Skull and face: Calvarium and facial bones appear intact, without suspicious lesions. Orbits appear normal. Sinuses: Sinuses and mastoids are clear. HEAD CT ANGIOGRAPHY: Anterior circulation: Intracranial internal carotid arteries are normal in size and flow. The flow within the paired anterior cerebral arteries is normal and symmetric. The flow within the middle cerebral arteries is normal and symmetric. The anterior communicating artery is seen. No aneurysms are seen. Posterior circulation: Visualized portions of the vertebral arteries demonstrate normal caliber, and join to form a normal appearing basilar artery. Flow within the posterior cerebral arteries is normal and symmetric. No aneurysms are seen. NECK CT ANGIOGRAPHY: Carotid system: The great vessels demonstrate a conventional anatomy as they arise from the aortic arch. The origins of the common carotid arteries appear patent. The common carotid arteries demonstrate normal caliber and courses. The bifurcation regions are both widely patent. The internal carotid arteries demonstrate normal calibers and courses. Posterior circulation: The origins of the vertebral arteries both appear widely patent. The more superior extracranial portions of both vertebral arteries also demonstrate normal courses and calibers. They join to form a normal appearing basilar artery. Soft tissues: Visualized neck soft tissues demonstrate no suspicious abnormalities. Bones: No suspicious bony lesions. Visualized cervical spine appears normally aligned. IMPRESSION: 1. No CT evidence of acute intracranial abnormalities. No area of abnormal contrast enhancement. 6 mm left frontal meningeal. 2. No hemodynamically significant stenosis or aneurysm is seen in visualized intracranial circulation. 3. No hemodynamically significant stenosis is seen in bilateral neck arteries. Any quantitative measurements of stenosis were performed using NASCET criteria. Dictated by: John Kunz M.D. on 04/11/2022 at 19:58 Approved by: John Kunz M.D. on 04/11/2022 at 20:05
[2022-04-11 19:40] LABS: Hematocrit 39.9 % (41-53); Hemoglobin 13.3 g/dL (13.5-17.5); Mean Corpuscular HGB Conc 33.4 % (30-36); Mean Corpuscular Hemoglobin 29.1 PG (26-34); Platelet Count 197 X10^3/uL (150-400); Red Blood Cell Count 4.59 X10^6/uL (4.5-5.9); White Blood Cell Count 28.2 X10^3/uL (4.5-11.0)
[2022-04-11 19:43] LABS: Add Manual Diff / Slide Review YES; INR 1.2 (0.9-1.3); Prothrombin Time 13.8 SECONDS (10.1-12.7)
[2022-04-11 19:45] LABS: PTT Partial Thromboplastin Tim 34 SECONDS (26-36)
[2022-04-11 19:58] LABS: Neutrophils Absolute Manual 4230 /uL (3000-5900); RBC Morphology Normal Morphology; Smudge Cells 1+; Total Cells Counted 100
[2022-04-11 19:59] LABS: COVID19 -Nasal RAPID Negative (Negative)
--- NOTE | 2022-04-11 20:01 | ED.NEUROSD ---
HPI - Neuro Symptoms/Deficit General Chief Complaint: Neuro Symptoms/Deficit Stated Complaint: sudden partial falls on left side for no reason Time Seen by Provider: 04/11/22 19:15 Source: patient and family Mode of arrival: Ambulatory History of Present Illness HPI Narrative: 76-year-old male nonsmoker with history of AFib on Eliquis and hypertension presents for evaluation of an episode of left lower extremity weakness that nearly caused a fall just prior to arrival. He states he was in his normal state of health and was walking and felt his left leg go limp with associated numbness. He denies other neurologic symptoms such as dizziness, weakness or lightheadedness. He has no blurred vision or trouble with speech. He denies any involvement of upper extremities. He denies recent trauma or injury. He has had no back pain. Denies any loss of control of bowel or bladder. On Anticoagulants: Yes Related Data Home Medications Medication Instructions Recorded Confirmed acyclovir 800 mg tablet 800 mg PO TID 01/01/18 10/17/21 apixaban 5 mg tablet (Eliquis) 5 mg PO BID 09/09/20 10/17/21 Previous Rx's Medication Instructions Recorded losartan 100 mg tablet 100 mg PO QDAY #90 tabs 10/03/21 Allergies Allergy/AdvReac Type Severity Reaction Status Date / Time ciprofloxacin Allergy Intermediate Hives Verified 10/17/21 15:45 adhesive Allergy Unknown Blisters Verified 10/17/21 15:45 sodium fluoride Allergy Unknown Blisters Verified 10/17/21 15:45 in mouth lisinopril AdvReac Mild COUGH Verified 10/17/21 15:45 metronidazole AdvReac Unknown Causes Verified 10/17/21 15:45 ulcers. Review of Systems Review of Systems Narrative: GENERAL: Denies chills, fatigue, malaise, fever, sweats. HEENT: Denies sinus pain, ear pain, sore throat, difficulty swallowing, dizziness. RESPIRATORY: Denies dyspnea, cough, wheezing, hemoptysis, sputum. CARDIOVASCULAR: Denies chest pain, palpitations, orthopnea, edema, GASTROINTESTINAL: Denies nausea, vomiting, abdominal pain, diarrhea, constipation, melena. : Denies dysuria, frequency, incontinence, hematuria, urinary retention. MUSCULOSKELETAL: denies weakness, joint pain, or bony pain SKIN: Denies rash, skin lesions, or other NEUROLOGIC: See HPI PSYCHIATRIC: No concerning psychosocial issues. 12 point review of systems is negative except for those stated above Hematologic/Lymphatic On Anticoagulants: Yes Patient History Medical History Bilateral contusion of ribs Chicken pox (1949) Chronic headaches (1944) CLL (chronic lymphocytic leukemia) (1988) Concussion without loss of consciousness, initial encounter Diverticular disease (1995) Fractures (1992) Hayfever (1960) Hypertension (1990) Migraines (1994) Mumps (1949) Ruptured tympanic membrane (1990) Shoulder pain (1980) Surgical History Anesthesia History of bowel resection (2003) History of colonoscopy with polypectomy (11/28/16) History of hernia repair (~1984) History of surgery (~1993) Hx of prostatectomy Status post appendectomy (2003) Family History Mother Hypertension Grandfather Diabetes mellitus Grandmother Stroke Hypertension Father Bone cancer Grandfather No problems noted. Grandmother No problems noted. Sister Lung cancer Social History household members: none Smoking Status: Never smoker alcohol intake: former Smoking Status: Never smoker Substance Use Type: does not use Exam Narrative Exam Narrative: GENERAL: [76] year old patient appears stated age. Well-developed patient, in mild distress. GCS 15 HEAD: Atraumatic. Normocephalic. EYES: Pupils equal round and reactive. Extraocular motions intact. No scleral icterus. No injection or drainage. ENT: Nose without bleeding, purulent drainage. Throat without erythema, tonsillar hypertrophy or exudate. Airway patent. NECK: Trachea midline. Non tender CARDIOVASCULAR: Regular rate and rhythm without murmurs, gallops, or rubs. RESPIRATORY: Clear to auscultation. Breath sounds equal bilaterally. No wheezes, rales, or rhonchi. GASTROINTESTINAL: Abdomen soft, non-tender, nondistended. EXTREMITIES: No edema or joint tenderness. BACK: Nontender without deformity or crepitance. No flank tenderness. NEURO: AOx3. SKIN: No rash or erythema of visible areas NIH Stroke Scale 1a. LOC: Patient is alert and keenly responsive (0) 1b. LOC Questions: Patient answers both LOC questions accurately (0) 1c. LOC Commands: Patient performs both tasks correctly (0) 2. Best Gaze: Normal (0) 3. Visual: No visual loss (0) 4. Facial palsy: Normal symmetrical movements (0) 5. Motor arm: No drift (0) 6. Motor leg: No drift (0) 7. Limb ataxia: Absent (0) 8. Sensory: Normal (0) 9. Best language: No aphasia; normal (0) 10. Dysarthria: Normal (0) 11. Extinction and inattention: No abnormality (0) NIHSS: 0 Initial Vital Signs Initial Vital Signs: Vital Signs Pulse Oximetry 93 04/11/22 19:10 Scores ABCD2 Age >= 60 years: yes Initial BP. Either SBP >= 140 or DBP >= 90.: yes Clinical features of the TIA: unilateral weakness Duration of symptoms: < 10 minutes History of diabetes: no ABCD2 Score: 4 Course Orders Ordered: ED Orders 04/11/22 19:10 Urine Culture Stat Urine Microscopic Stat 04/11/22 19:20 COVID19 -Nasal RAPID/Pre-Proc Stat Complete Blood Count AUTO DIFF Stat Comprehensive Metabolic Panel Stat Ethanol (ETOH) Stat Partial Thromboplastin Time Stat Prothrombin Time INR Stat Troponin & CK Cardiac Panel Stat 04/11/22 19:28 CT Stroke Stat EKG-12 Lead Stat 04/11/22 19:29 CT angio head and neck Stat Consultations Consultation #1: call from radiology, head CT unremarkable, no TPA contraindication on imaging (patient does not meet TPA criteria as he no longer has symptoms) Time: 20:01 Vital Signs Vital signs: Vital Signs - 8 hr 04/11/22 19:34 04/11/22 19:10 04/11/22 19:11 Temperature 98.3 F Pulse Rate 79 84 Respiratory Rate 18 Blood Pressure 196/71 H Pulse Oximetry 97 93 96 Oxygen Delivery Method Room Air 04/11/22 19:11 04/11/22 19:15 04/11/22 19:30 Temperature Pulse Rate 79 77 Respiratory Rate 16 Blood Pressure 196/91 H Pulse Oximetry 99 98 Oxygen Delivery Method 04/11/22 19:51 04/11/22 19:59 04/11/22 19:59 Temperature Pulse Rate 73 74 Respiratory Rate 21 Blood Pressure 149/75 H Pulse Oximetry 98 95 Oxygen Delivery Method 04/11/22 20:00 Temperature Pulse Rate 77 Respiratory Rate 17 Blood Pressure Pulse Oximetry 95 Oxygen Delivery Method MDM - Neuro Symptoms/Deficit Lab Data 04/11/22 19:20 04/11/22 19:20 Labs: Lab Results 04/11/22 04/11/22 04/11/22 Range/Units 19:10 19:20 19:20 WBC 28.2 H (4.5-11.0) X10^3/uL RBC 4.59 (4.5-5.9) X10^6/uL Hgb 13.3 L (13.5-17.5) g/dL Hct 39.9 L (41-53) % MCV 87.0 (80-100) fL MCH 29.1 (26-34) PG MCHC 33.4 (30-36) % RDW 13.0 (11.6-14.8) % Plt Count 197 (150-400) X10^3/uL Neut % (Auto) Not Reportable Lymph % (Auto) Not Reportable [place] % (Auto) Not Reportable Eos % (Auto) Not Reportable Baso % (Auto) Not Reportable Lymph # (Auto) Not Reportable [place] # (Auto) Not Reportable Baso # (Auto) Not Reportable Total Counted 100 Seg Neutrophils % 15.0 L (38-70) % Lymphocytes % (Manual) 81.0 H (25-45) % Monocytes % (Manual) 2.0 (2-11) % Eosinophils % (Manual) 2.0 (2-4) % Neutrophils # (Manual) 4230 (0981-7082) /uL [place] Cells 1+ H RBC Morphology Normal morphology PT 13.8 H (10.1-12.7) SECONDS INR 1.2 (0.9-1.3) APTT 34 (26-36) SECONDS Sodium (137-145) mmol/L Potassium (3.4-5.1) mmol/L Chloride (98-107) mmol/L Carbon Dioxide (22-32) mmol/L BUN (9-20) mg/dL Creatinine (0.66-1.25) mg/dL Estimated GFR (>60) mL/min BUN/Creatinine Ratio (6-22) Glucose (80-110) mg/dL Calcium (8.4-10.2) mg/dL Total Bilirubin (0.2-1.3) mg/dL AST (17-59) IU/L ALT (<50) IU/L Alkaline Phosphatase (38-126) U/L Total Creatine Kinase (55-170) U/L CK-MB (CK-2) (<2.37) ng/mL CK-MB (CK-2) Rel Index (1.5-5.0) % Troponin I (0.01-0.034) ng/mL Total Protein (6.3-8.2) g/dL Albumin (3.5-5.0) g/dL Globulin (1.7-4.1) g/dL Albumin/Globulin Ratio (1.0-2.8) Urine RBC 1-5/hpf (0-5/HPF) Urine WBC None seen (0-5/HPF) Ur Squamous Epith Cells None seen (0-5/HPF) Urine Bacteria None seen (None) Ur Culture Indicated? Cult not indicated Ethyl Alcohol ( - 10) mg/dL SARS-CoV-2 (PCR) (Negative) 04/11/22 04/11/22 Range/Units 19:20 19:20 WBC (4.5-11.0) X10^3/uL RBC (4.5-5.9) X10^6/uL Hgb (13.5-17.5) g/dL Hct (41-53) % MCV (80-100) fL MCH (26-34) PG MCHC (30-36) % RDW (11.6-14.8) % Plt Count (150-400) X10^3/uL Neut % (Auto) Lymph % (Auto) [place] % (Auto) Eos % (Auto) Baso % (Auto) Lymph # (Auto) [place] # (Auto) Baso # (Auto) Total Counted Seg Neutrophils % (38-70) % Lymphocytes % (Manual) (25-45) % Monocytes % (Manual) (2-11) % Eosinophils % (Manual) (2-4) % Neutrophils # (Manual) (2210-9637) /uL [place] Cells RBC Morphology PT (10.1-12.7) SECONDS INR (0.9-1.3) APTT (26-36) SECONDS Sodium 137 (137-145) mmol/L Potassium 3.9 (3.4-5.1) mmol/L Chloride 103 (98-107) mmol/L Carbon Dioxide 25 (22-32) mmol/L BUN 18 (9-20) mg/dL Creatinine 0.82 (0.66-1.25) mg/dL Estimated GFR > 60 (>60) mL/min BUN/Creatinine Ratio 22.0 (6-22) Glucose 143 H (80-110) mg/dL Calcium 8.9 (8.4-10.2) mg/dL Total Bilirubin 0.6 (0.2-1.3) mg/dL AST 31 (17-59) IU/L ALT 24 (<50) IU/L Alkaline Phosphatase 105 (38-126) U/L Total Creatine Kinase 103 (55-170) U/L CK-MB (CK-2) 2.01 (<2.37) ng/mL CK-MB (CK-2) Rel Index 2.0 (1.5-5.0) % Troponin I < 0.012 (0.01-0.034) ng/mL Total Protein 7.1 (6.3-8.2) g/dL Albumin 4.2 (3.5-5.0) g/dL Globulin 2.9 (1.7-4.1) g/dL Albumin/Globulin Ratio 1.4 (1.0-2.8) Urine RBC (0-5/HPF) Urine WBC (0-5/HPF) Ur Squamous Epith Cells (0-5/HPF) Urine Bacteria (None) Ur Culture Indicated? Ethyl Alcohol < 10 ( - 10) mg/dL SARS-CoV-2 (PCR) Negative (Negative) Urine Dip Bedside Urine Glucose Negative Bedside Urine Bilirubin - Negative Bedside Urine Ketone - Negative Urine Specific [place] 1.025 Bedside Urine Occult Blood + Bedside Urine pH 6.0 Bedside Urine Protein - Negative Bedside Urine Urobilinogen - Negative Bedside Urine Nitrite - Negative Bedside Urine Leukocytes - Negative Esterase MDM Narrative Medical decision making narrative: CC: 76-year-old male with history of remote CLL, hypertension and AFib on Eliquis with episode of resolved lower extremity weakness in the absence of other neurologic symptoms Complicating co-morbidities: AFib, Eliquis, hypertension, age, Data collected from: Patient Medical records reviewed: Including prior visits here at as well as records Differential considered, but not limited to: From [facility] sent over TIA, stroke, lumbar radiculopathy versus other Exam documented above, pertinent findings include: Very reassuring here, normal NIH, as full strength, sensation and reflexes, no saddle anesthesia Lab Test results independently reviewed as above. Pertinent findings: No significant abnormal findings that would require a specific or immediate intervention Independently reviewed EKG as above Imaging studies independently reviewed: CT of the head without contraindication to tPA though the patient is not a candidate as his symptoms have resolved. CTA of head and neck without significant findings Scores Used: NIHSS, ABCD2 #187: Stroke & Stroke Rehabilitation: Thrombolytic Therapy [] The patient, who arrived at the hospital within 3.5 hours of time last known well, was diagnosed with subacute or acute ischemic stroke. IV t-PA was initiated within 4.5 hours of time last known well. [SATISFIES MIPS PERFORMANCE] [] The patient was diagnosed with subacute or acute ischemic stroke. IV t-PA was not initiated within 4.5 hours of last known well due to [select]: [MIPS PERFORMANCE EXCEPTION/EXCLUSION] [] Patient arrived more than 3.5 hours after last known well time, or the time last known well is unknown [x] Patient has a medical contra-indication or reason for not administering [] (ex. neurologist does not believe t-PA is appropriate, active internal bleeding, serious head trauma, acute current or history of intracranial hemorrhage, uncontrollable hypertension, seizure at onset of stroke, CVA in last 3 months, Intracranial or intraspinal surgery in last 3 months, bleeding disorder, thrombocytopenia < 100,000, early radiographic ischemic changes on head CT, INR > 1.7, intracranial neoplasm, AVM, or aneurysm, patient in stroke trial, patient admitted for elective carotid intervention) []Patient or family declined IV t-PA [] The patient, who arrived at the hospital within 3.5 hours of time last known well, was diagnosed with subacute or acute ischemic stroke. IV t-PA was not initiated within 4.5 hours of time last known well. [DOES NOT SATISFY MIPS PERFORMANCE] Consultations: Hospitalist happy to accept, direct discussion with radiologist Re-evaluations: Patient asymptomatic for duration of visit Discussion: 76-year-old male with history of hypertension, AFib on Eliquis and remote CLL presents with a brief episode of left lower extremity weakness nearly causing fall. This is absence of other focal neurologic symptoms and resolved prior to his arrival. He is rapidly evaluated for stroke with appropriate labs, EKG and imaging which thankfully showed no significant findings. Patient is not tPA candidate as his symptoms resolved and he is on anticoagulation. Lumbar radiculopathy considered, however patient has no pain and symptoms resolved without intervention, most likely diagnosis is TIA patient evaluated by ABCD2 score of 4, will require hospitalization for further evaluation as he is high-risk for stroke and will need echocardiogram and MRI. Discharge Plan Departure Patient Disposition: Admitted as Observation Clinical Impression: Transient cerebral ischemia Admit Date/Time: 04/11/22 21:08 Admit Provider: Anna Oconnor
[2022-04-11 20:05] LABS: Bacteria Urine None Seen; Culture Indicated Urine Cult Not Indicated; RBC Urine 1-5/HPF (0-5/HPF); Squamous Epithelial Cell Urine None Seen (0-5/HPF); WBC Urine None Seen (0-5/HPF)
[2022-04-11 20:14] LABS: Alanine Aminotransferase 24 IU/L (<50); Albumin 4.2 g/dL (3.5-5.0); Albumin Globulin Ratio 1.4 (1.0-2.8); Alkaline Phosphatase 105 U/L (38-126); Aspartate Aminotransferase 31 IU/L (17-59); Bilirubin Total 0.6 mg/dL (0.2-1.3); Blood Urea Nitrogen 18 mg/dL (9-20); Calcium 8.9 mg/dL (8.4-10.2); Carbon Dioxide 25 mmol/L (22-32); Chloride 103 mmol/L (98-107); Creatine Kinase 103 U/L (55-170); Estimated Glomerular Filt Rate > 60 mL/min (>60); Globulin 2.9 g/dL (1.7-4.1); Glucose 143 mg/dL (80-110); HEMOLYSIS < 15 (0-50); Potassium 3.9 mmol/L (3.4-5.1); Sodium 137 mmol/L (137-145); Total Protein 7.1 g/dL (6.3-8.2)
[2022-04-11 20:15] LABS: Ethanol (ETOH) < 10 mg/dL
[2022-04-11 20:25] LABS: Troponin I < 0.012 ng/mL (0.01-0.034)
[2022-04-11 20:29] LABS: Creatine Kinase MB 2.01 ng/mL (<2.37)
--- NOTE | 2022-04-11 21:59 | DI.MRI.S_ITS ---
PROCEDURE: MR HEAD/BRAIN WO CON INDICATIONS: TIA TECHNIQUE: Non-contrast axial T1 spin echo, axial T2 fast spin echo, sagittal and axial FLAIR, coronal T2 fast spin echo, axial gradient echo, axial diffusion and ADC through the brain. COMPARISON: [facility], CT, CT STROKE, 04/11/2022, 19:41. [facility], CT, CT ANGIO HEAD AND NECK, 04/11/2022, 19:41. FINDINGS: Image quality: Excellent. CSF spaces: Ventricles appear symmetric in size and shape. Basal cisterns are patent. No extra-axial fluid collections. Brain: No intracranial bleeds or mass effects. There is cerebral volume loss for age. There are udsc-en-ayuylupa periventricular and deep white matter chronic small vessel ischemic changes. Brainstem appears normal. Diffusion-weighted images show no acute ischemic insults. No chronic ischemic insults. Normal intravascular flow voids are present. Skull and face: Calvarial bone marrow is normal in signal. Orbits are normal. Sinuses: Sinuses and mastoids are clear. IMPRESSION: 1. Age-related volume loss and vtej-gx-ufhnbzbm small vessel ischemic change. 2. No evidence acute stroke, hemorrhage, or mass. Dictated by: Yinka Sierra M.D. on 04/12/2022 at 8:25 Approved by: Yinka Sierra M.D. on 04/12/2022 at 8:28
--- NOTE | 2022-04-11 22:09 | DI.ECHO.S_ITS ---
[facility]---------+ [facility] +---------+ : : [address] : : : : [id number] : : : : Phone: [phone] Echocardiogram Report + + :Name: GUNNAR LAU Study Date: 04/12/2022 Height: 72 in : :[facility] ReadingLocation: Weight: 165 lb : : Gender: Male BSA: 2.0 m2 : :: 1945 Age: 76 yrs BP: 135/91 mmHg: :Reason For Study: TIA : :Ordering Physician: Gordy PENAformed By: Lucy Salas : :Referring: NORA PENA : + + Interpretation Summary The left ventricle is normal in size and wall thickness. The ejection fraction is estimated to be 60-65%. No obvious LV thrombus. The right ventricle is normal in size and function. There is mild tricuspid regurgitation. The right ventricular systolic pressure is estimated to be at least 26 mmHg based on an estimated right atrial pressure of 8 mm Hg. Mild atherosclerotic plaque(s) in the aortic arch. The patient was in sinus rhythm with heart rates between 66-85 bpm during the exam. Procedure: A two-dimensional transthoracic echocardiogram with color flow and Doppler was performed. The study quality was technically adequate. There is no prior echocardiogram noted for this patient. The patient was in sinus rhythm with heart rates between 66-85 bpm during the exam. Left Ventricle: The left ventricle is normal in size and wall thickness. There is no thrombus. A false chord is noted (normal variant). The ejection fraction is estimated to be 60-65%. There are no focal wall motion abnormalities. Diastolic parameters suggest a relaxation abnormality of the left ventricle, consistent with probable normal filling pressures. Right Ventricle: The right ventricle is normal in size and function. Atria: The left atrial size is normal. Right atrial size is normal. A prominent eustachian valve is noted. There is no Doppler evidence for an interatrial shunt. Mitral Valve: There is mild mitral annular calcification. The mitral valve leaflets are slightly calcified. Redundant elongated chordae are noted. There is mild mitral regurgitation. Aortic Valve: The aortic valve is trileaflet. The aortic valve is mildly calcified. There is mild aortic valve sclerosis. There is no aortic valve stenosis. No aortic regurgitation is present. Tricuspid Valve: The tricuspid valve is normal. There is mild tricuspid regurgitation. The right ventricular systolic pressure is estimated to be at least 26 mmHg based on an estimated right atrial pressure of 8 mm Hg. Pulmonic Valve: The pulmonic valve is not well seen, but is grossly normal. There is trace pulmonic regurgitation. Great Vessels: The aortic root is normal size. The dimensions of the ascending aorta are normal. Mild atherosclerotic plaque(s) in the aortic arch. The IVC is dilated (diameter is greater than 2.1 cm) yet it collapses greater than 50% with a sniff. This suggests a right atrial pressure of 8 mm Hg. Pericardium/ Pleura There is no pericardial effusion. There is no pleural effusion. MMode/2D Measurements & Calculations LVIDd: 4.8 cm LVOT diam: 2.2 cm LVIDs: 3.0 cm Ao root diam: 3.8 cm FS: 36.8 % asc Aorta Diam: 3.7 cm IVSd: 0.70 cm Ao Arch Diam (Prox Trans): 3.3 cm LVPWd: 0.84 cm LV chua. diameter/BSA (cm/m^2): 2.4 LV sys. diameter/BSA (cm/m^2): 1.5 LA A2 area: 21.2 cm2 RA long axis: 5.3 cm LA A4 area: 19.9 cm2 RA area: 17.1 cm2 LA length (vol): 5.5 cm RA vol: 47.0 ml LA vol: 64.7 ml RA : 23.9 ml/m2 LA vol index: 32.9 ml/m2 IVC diam: 2.1 cm RVD1 (basal): 3.6 cm RVD2 (mid): 2.7 cm TAPSE: 2.1 cm Doppler Measurements & Calculations Ao V2 max: 139.6 cm/sec LVOT Max Robert: 109.1 cm/sec Ao V2 mean: 103.4 cm/sec LV V1 max P.8 mmHg Ao max P.8 mmHg LV V1 VTI: 21.7 cm Ao mean P.7 mmHg EVY(I,D): 2.8 cm2 Ao V2 VTI: 29.1 cm EVY(V,D): 2.9 cm2 sev ratio: 0.74 EVY indexed to BSA (cm^2/m^2): 1.4 MV E max robert: 66.6 cm/sec TR max robert: 211.6 cm/sec MV A max robert: 88.1 cm/sec TR max P.9 mmHg MV E/A: 0.76 PA V2 max: 86.6 cm/sec Med Peak E' Robert: 5.0 cm/sec PA V2 mean: 61.7 cm/sec E/E' med: 13.3 PA mean P.7 mmHg Lat Peak E' Robert: 6.7 cm/sec PA pr(Accel): 32.8 mmHg E/E' lat: 9.9 E/e' average: 11.6 MV dec time: 0.28 sec SV(LVOT): 81.2 ml Reading Physician:11:45 AM
--- NOTE | 2022-04-11 22:33 | PC.NURSE ---
He has been offered multiple juices and his has been given sandwiches.
[2022-04-11 22:39] LABS: Hemoglobin A1C% w Est Avg Glu 5.1 % (4.0-6.0)
[2022-04-11] MEDS: ATORVASTATIN 20 MG TABLET 80 MG PO (22:49)
[2022-04-11] MEDS: APIXABAN 5 MG TABLET PO (22:49)
[2022-04-11] MEDS: ACYCLOVIR 400 MG TABLET 800 MG PO (23:06)
--- NOTE | 2022-04-11 23:09 | P.HP_ITS ---
History of Present Illness History of Present Illness Date Patient Seen: 04/11/22 Time Patient Seen: 23:09 Chief complaint: Left leg weakness, TIA Narrative: Stalin Guaman is 76-year-old male nonsmoker with AFib anticoagulated on Eliquis and hypertension and is in active surveillance for CLL currently in remission, presented to the ED for evaluation of a brief episode of left lower extremity weakness that nearly caused a fall just prior to arrival.? He states he was in his normal state of health and was standing at his kitchen counter prepping dinner for his dog and felt his left leg go limp with associated numbness.? He denies headache, dizziness, weakness or lightheadedness.? He has no blurred vision or trouble with speech.? Denies shortness of breath, chest pain or palpitations. Denied nausea or vomiting, bowel or bladder control changes. He denies any involvement of upper extremities.? He has shingles that affects his right eye and felt itchyness and takes acyclovir for this. He denies recent trauma or injury.? He has chronic neck and back pain as well as left leg sciatica from getting in and out of his truck. He has been having chiropractic adjustments of his neck and low back and had adjustments this 4 days ago and is scheduled for future visits later this week.? Denied any loss of control of bowel or bladder. Brain CT indicated small-vessel disease but no acute findings, head and neck CTA were negative. He is afebrile, blood pressure 149/79, heart rate 77, respiratory rate 17, oxygen saturation 95% on room air he weighs 74.8 kg with a BMI of 22.4. WBC is elevated at 28.2 likely representing his current CLL state, he has no left shift, nonfasting glucose is 143 however his A1c is 5.1 troponin is negative and the rest of his chemistries are unremarkable. UA is negative for UTI, COVID 19 PCR is negative. Patient History Medical History (Updated 04/11/22 @ 22:06 by [facility]) Anticoagulated Atrial fibrillation, chronic Bilateral contusion of ribs Chicken pox (1949) Chronic headaches (1944) CLL (chronic lymphocytic leukemia) (1988) Concussion without loss of consciousness, initial encounter Diverticular disease (1995) Essential hypertension Fractures (1992) Hayfever (1960) Hypertension (1990) Migraines (1994) Mumps (1949) Ruptured tympanic membrane (1990) Shoulder pain (1980) Surgical History Anesthesia History of bowel resection (2003) History of colonoscopy with polypectomy (11/28/16) History of hernia repair (~1984) History of surgery (~1993) Hx of prostatectomy Status post appendectomy (2003) Family & Social History Family History Mother Hypertension Grandfather Diabetes mellitus Grandmother Stroke Hypertension Father Bone cancer Grandfather No problems noted. Grandmother No problems noted. Sister Lung cancer Social History: household members none Safety & Behavioral: Feels Safe in Current Yes Environment Been Physically Hurt or No Threatened By a Person Tobacco & Substance use: Smoking Status Never smoker alcohol intake former Substance Use Type does not use Meds Home Medications and Allergies Home Medications Medication Instructions Recorded Confirmed Type acyclovir 800 mg tablet 800 mg PO TID 01/01/18 10/17/21 History apixaban 5 mg tablet (Eliquis) 5 mg PO BID 09/09/20 10/17/21 History losartan 100 mg tablet 100 mg PO QDAY #90 tabs 10/03/21 10/17/21 Rx Allergies Allergy/AdvReac Type Severity Reaction Status Date / Time ciprofloxacin Allergy Intermediate Hives Verified 10/17/21 15:45 adhesive Allergy Unknown Blisters Verified 10/17/21 15:45 sodium fluoride Allergy Unknown Blisters Verified 10/17/21 15:45 in mouth lisinopril AdvReac Mild COUGH Verified 10/17/21 15:45 metronidazole AdvReac Unknown Causes Verified 10/17/21 15:45 ulcers. Review of Systems Review of Systems ROS: Yes All systems reviewed with the patient and are negative except as otherwise documented Exam Vital Signs (past 8 hours): - 04/11/22 19:34 04/11/22 19:10 04/11/22 19:11 Temperature 98.3 F Pulse Rate 79 84 Respiratory Rate 18 Blood Pressure 196/71 H Pulse Oximetry 97 93 96 Oxygen Delivery Method Room Air 04/11/22 19:11 04/11/22 19:15 04/11/22 19:30 Temperature Pulse Rate 79 77 Respiratory Rate 16 Blood Pressure 196/91 H Pulse Oximetry 99 98 Oxygen Delivery Method 04/11/22 19:51 04/11/22 19:59 04/11/22 19:59 Temperature Pulse Rate 73 74 Respiratory Rate 21 Blood Pressure 149/75 H Pulse Oximetry 98 95 Oxygen Delivery Method 04/11/22 20:00 Temperature Pulse Rate 77 Respiratory Rate 17 Blood Pressure Pulse Oximetry 95 Oxygen Delivery Method Oxygen Delivery Method Room Air Narrative Exam Narrative: Gen: Alert, oriented, thin 76 y.o. male, NAD HEENT: normocephalic, atraumatic, conjunctiva clear, sclera non-icteric, oral mucosa pink and moist Neck: supple, full ROM, no JVD, trachea is midline Resp: Lungs CTA, non-labored breathing CV: RRR, no murmur or rubs Abd: soft, non-tender, normoactive BTs Skin: no lesions or rashes, dry and intact Neuro: Alert and oriented X 4 w/no focal deficits. 5/5 hand strength, CN 2-IX wnl, speech clear and coherent. Extremities: moves all 4 extremities, is ambulatory, negative Sonido?s sign Psyche: normal mood and affect. Objective Labs 04/11/22 19:20 04/11/22 19:20 Labs: Laboratory Results - last 24 hr 04/11/22 04/11/22 04/11/22 19:10 19:20 19:20 WBC 28.2 H RBC 4.59 Hgb 13.3 L Hct 39.9 L MCV 87.0 MCH 29.1 MCHC 33.4 RDW 13.0 Plt Count 197 Neut % (Auto) Not Reportable Lymph % (Auto) Not Reportable [place] % (Auto) Not Reportable Eos % (Auto) Not Reportable Baso % (Auto) Not Reportable Lymph # (Auto) Not Reportable [place] # (Auto) Not Reportable Baso # (Auto) Not Reportable Total Counted 100 Seg Neutrophils % 15.0 L Lymphocytes % (Manual) 81.0 H Monocytes % (Manual) 2.0 Eosinophils % (Manual) 2.0 Neutrophils # (Manual) 4230 Smudge Cells 1+ H RBC Morphology Normal morphology PT 13.8 H INR 1.2 APTT 34 Sodium Potassium Chloride Carbon Dioxide BUN Creatinine Estimated GFR BUN/Creatinine Ratio Glucose Hemoglobin A1c Calcium Total Bilirubin AST ALT Alkaline Phosphatase Total Creatine Kinase CK-MB (CK-2) CK-MB (CK-2) Rel Index Troponin I Total Protein Albumin Globulin Albumin/Globulin Ratio Urine RBC 1-5/hpf Urine WBC None seen Ur Squamous Epith Cells None seen Urine Bacteria None seen Ur Culture Indicated? Cult not indicated Ethyl Alcohol SARS-CoV-2 (PCR) 04/11/22 04/11/22 04/11/22 19:20 19:20 19:20 WBC RBC Hgb Hct MCV MCH MCHC RDW Plt Count Neut % (Auto) Lymph % (Auto) [place] % (Auto) Eos % (Auto) Baso % (Auto) Lymph # (Auto) [place] # (Auto) Baso # (Auto) Total Counted Seg Neutrophils % Lymphocytes % (Manual) Monocytes % (Manual) Eosinophils % (Manual) Neutrophils # (Manual) Smudge Cells RBC Morphology PT INR APTT Sodium 137 Potassium 3.9 Chloride 103 Carbon Dioxide 25 BUN 18 Creatinine 0.82 Estimated GFR > 60 BUN/Creatinine Ratio 22.0 Glucose 143 H Hemoglobin A1c 5.1 Calcium 8.9 Total Bilirubin 0.6 AST 31 ALT 24 Alkaline Phosphatase 105 Total Creatine Kinase 103 CK-MB (CK-2) 2.01 CK-MB (CK-2) Rel Index 2.0 Troponin I < 0.012 Total Protein 7.1 Albumin 4.2 Globulin 2.9 Albumin/Globulin Ratio 1.4 Urine RBC Urine WBC Ur Squamous Epith Cells Urine Bacteria Ur Culture Indicated? Ethyl Alcohol < 10 SARS-CoV-2 (PCR) Negative Assessment & Plan Assessment & Plan narrative: Stalin Guaman will be observed overnight for further assessment and workup of a TIA/Stroke TIA/Stroke, acute and present on admission - ABCD2 score of 4, moderate to high risk - Cardiac telemetry - NIH score greater than 5 [X]no, neuro checks q 4 hours - Dual antiplatelet therapy: add low dose aspirin to apixaban - MR stroke scheduled for 04/12 - Complete Echo with bubble study for 04/12 - PT/OT/ST evaluation Left leg weakness, acute and short duration - Likely from chiropractic manipulations if results from additional testing deems negative - Recommend patient refrain from having cervical manipulation as raises the risk for a stroke. Hypertension, acute with an admission bp of [], present on admission - Allow for permissive hypertension of 220/110 HR 60 to allow for brain perfusion - Allow for permissive hypertension for brain profusion of a systolic of 220 and a diastolic of 105. - IV labetolol if his systolic exceeds 220 or diastolic greater than 105. HLD Fasting lipid panel, pending for 0500 labs - Atorvastatin 80 mg po at bedtime Risk stratification - Fasting lipid panel pending for the morning - A1c is 5.1 % not diabetic Other independent historians: none Discussion of results, plan of care with independent HCP/other: ED provider Reviewed outside records: PCP records VTE Prophylaxis: Wells risk score 0 X Bilateral SCDs Patient is currently anticoagulated on apixaban. Patient is placed into observation as his stay is not expected to exceed 2 midnights. FEN: IV fluids: saline lock, diet: heart healthy, labs: CBC, C/BMP, liver enzymes, Mag, PT/INR Consultants None Social determinants of health: None apparent Dispo: probable d/c to home if with negative findings Code status: full code as discussed with the patient who identifies camacho Mcclain his surrogate and POA. [X] I have utilized all available immediate resources to obtain, update, or review of the patient's current medications VTE Deep Vein Thrombosis/Pulmonary Embolism Present on Admission: No MIPS - Admit I confirm the patient?s Advance Care Plan is present, Code status is documented, Surrogate decision maker is in patient?s record: Yes MIPS - DC The patient has current or prior documentation of left ventricular ejection fraction (LVEF) less than 40%, or moderate or severely depressed left ventricular systolic function.: No COVID-19 COVID-19 status: Negative Result date/Date tested (Pos, Neg/Pending): 04/11/22 Scores ABCD2 Age >= 60 years: yes Initial BP. Either SBP >= 140 or DBP >= 90.: yes Clinical features of the TIA: unilateral weakness Duration of symptoms: < 10 minutes History of diabetes: no ABCD2 Score: 4
[2022-04-12] VITALS (32 sets, daily range): BP systolic 135–153; BP diastolic 70–91; PULSE 65–91; RESP 8–25; TEMP 36.6; O2SAT 95–100
[2022-04-12 01:07] LABS: Thyroid Stimulating Hormone 4.99 uIU/mL (0.47-4.68)
[2022-04-12 05:22] LABS: Alanine Aminotransferase 22 IU/L (<50); Albumin 4.1 g/dL (3.5-5.0); Albumin Globulin Ratio 1.5 (1.0-2.8); Alkaline Phosphatase 94 U/L (38-126); Aspartate Aminotransferase 28 IU/L (17-59); BUN Creatinine Ratio 19.5 (6-22); Bilirubin Total 0.9 mg/dL (0.2-1.3); Blood Urea Nitrogen 16 mg/dL (9-20); Calcium 9.1 mg/dL (8.4-10.2); Carbon Dioxide 24 mmol/L (22-32); Chloride 104 mmol/L (98-107); Estimated Glomerular Filt Rate > 60 mL/min (>60); Globulin 2.8 g/dL (1.7-4.1); Glucose 101 mg/dL (80-110); HEMOLYSIS < 15 (0-50); Potassium 4.1 mmol/L (3.4-5.1); Sodium 138 mmol/L (137-145); Total Protein 6.9 g/dL (6.3-8.2)
[2022-04-12 05:24] LABS: Cholesterol 199 mg/dL (140-199); HDL Cholesterol 38 mg/dL (40-60); LDL Cholesterol Calculated 138 mg/dL (<100); Triglycerides 117 mg/dL (35-150)
[2022-04-12 05:43] LABS: Hematocrit 39.8 % (41-53); Hemoglobin 13.1 g/dL (13.5-17.5); Mean Corpuscular Hemoglobin 28.8 PG (26-34); Mean Corpuscular Volume 87.3 fL (80-100); Platelet Count 189 X10^3/uL (150-400); Red Blood Cell Count 4.56 X10^6/uL (4.5-5.9); Red Cell Distribution Width 13.1 % (11.6-14.8); White Blood Cell Count 23.8 X10^3/uL (4.5-11.0)
[2022-04-12 05:51] LABS: Add Manual Diff / Slide Review YES
[2022-04-12 06:22] LABS: Neutrophils Absolute Manual 5950 /uL (3000-5900); Total Cells Counted 100
[2022-04-12 06:23] LABS: Smudge Cells 2+
[2022-04-12 06:24] LABS: RBC Morphology Normal Morphology
--- NOTE | 2022-04-12 07:41 | PC.NURSE ---
pt had transient left leg weakness yesterday, all since resolved, per report all resolved quickly. pt up independent and steady gate, off to MRI ambulated to mri
[2022-04-12] MEDS: LOSARTAN 50 MG TABLET 100 MG PO (08:12)
[2022-04-12] MEDS: ACYCLOVIR 400 MG TABLET 800 MG PO (08:12)
[2022-04-12] MEDS: APIXABAN 5 MG TABLET PO (08:12)
--- NOTE | 2022-04-12 10:01 | ST.IPSCREEN ---
Pt was laying in bed with son at bedside when MARKETING PRODUCTION COORDINATOR arrived. He reported no speech, cognitive, or swallowing difficulties were part of initial symptoms, adding his symptoms were mostly in lower left extremities. Speech was clear and 100% intelligible. Structures were symmetrical at rest and in motion, dentition was present and WNL, and pt reported no difficulty with chewing or swallowing. Tongue, lips, and jaw strength and ROM were WNL. Structure and function of oral mechanism appears WNL for the purposes of speech and swallowing. Pt observed to sip thin water through straw cup in upright position with no overt signs or symptoms of aspiration. Speech therapy is not indicated at this time.
--- NOTE | 2022-04-12 11:55 | OT.IP.TRT ---
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 (04/11/22) Occupational Therapy Treatment Note M2 OT-IP Current Condition Start: 04/12/22 14:16 Freq: Status: Active Protocol: Document 04/12/22 11:55 [facility] (Rec: 04/12/22 14:27 [facility] [id number]) Occupational Therapy Current Condition Current Condition Treatment Diagnosis TIA Diagnosis Onset Date 04/11/22 M3 OT- IP Subjective and Pain Start: 04/12/22 14:16 Freq: Status: Active Protocol: Document 04/12/22 11:55 [facility] (Rec: 04/12/22 14:27 [facility] [id number]) OT- Subjective Occupational Therapy Visit Type Type Treatment Note Visit Start Time 11:51 Visit Stop Time 12:06 Total Visit Minutes 15 Occupational Therapy Visit Comments Patient Comments Pt feels back to his baseline but agreed to do cognitive assessment and functional activities to simulate his line of work. Patient/Caregiver Goals To go home. OT Pain Assessment Pain When Pain Assessed At Rest Pain Present Pain Present Denied Pain M4 OT- IP ADL's Start: 04/12/22 14:16 Freq: Status: Active Protocol: Document 04/12/22 11:55 [facility] (Rec: 04/12/22 14:27 [facility] [id number]) OT ADL-Dressing General Eval Lower Body Dressing Ability Independent Comments OT Dressing Comments Pt able to independently fredo/ doff her socks and tie boots. M6 OT- IP Functional Cognition Start: 04/12/22 14:16 Freq: Status: Active Protocol: Document 04/12/22 11:55 [facility] (Rec: 04/12/22 14:27 [facility] [id number]) Cognitive Factors Limiting Selfcare Function Cognitive Ability Level of Alertness Alert Patient Orientation Name,Age,Birthday,Month,Date, Year,Day of Week,Place, Situation Attention Span Ability Capable of Focused Attention, Capable of Sustained Attention Ability to Follow Commands Able to Follow Multi-Step Commands Memory Description No Deficits Noted Safety Awareness No Deficits Noted Problem Solving Ability No deficits Noted Executive Function Ability No Deficits Noted Cognitive Comments Cognitive Assessment Comments Pt scored 75 seconds for [place] Making Part B which implies approximately 75% for his age group and implies normal but not perfect for visual attention, speed of processing , task switching, mental flexibility, and executive functioning. 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 OT- Balance Assessment Sitting Balance and Reactions Static Sitting Balance Ability Normal Dynamic Sitting Balance Ability Normal Standing Balance and Reactions Static Standing Balance Ability Normal Dynamic Standing Balance Ability Good M9 OT- IP Assessment and Plan Start: 04/12/22 14:16 Freq: Status: Active Protocol: Document 04/12/22 11:55 [facility] (Rec: 04/12/22 14:27 [facility] [id number]) OT Summary Assessment and Plan Summary Progress Towards Goals Safe For Discharge Assessment Summary Pt intact for cognition, vision and able to independently move in the room on his own and even able to get up and down from the floor which was simulating what he does at work- 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 NO further needs for OT. Pt to go home when medically stable. Discharge Recommendations OT Discharge Recommendations Home Transportation Needs at Discharge Private Vehicle
--- NOTE | 2022-04-12 13:41 | PT-IP ANOTE ---
PT eval order received. EMR reviewed and per nursing note, pt is independent with ambulation. checked on pt and pt stated that he is moving ok and is back to his normal self. stated that the L sided weakness was resolved even before he went to the hospital but still decided to go to the hospital because he said it is just weird that it happened. pt stated that he does not need PT. asked pt if he has stairs at home to maneuver and stated he has a lot but got did the stair yesterday before he went to the hospital. will d/c PT eval order as requested.
--- NOTE | 2022-04-12 14:35 | P.DS_ITS ---
History of Present Illness History of Present Illness Chief complaint: Left leg weakness, TIA Narrative: 76-year-old male nonsmoker with AFib anticoagulated on Eliquis and hypertension and is in active surveillance for CLL currently in remission,? presented to the ED for evaluation of a brief episode of left lower extremity weakness that nearly caused a fall just prior to arrival.? He states he was in his normal state of health and was standing at his kitchen counter prepping dinner for his dog and felt his left leg go limp with associated numbness.? He denies headache, dizziness, weakness or lightheadedness.? He has no blurred vision or trouble with speech.? Denies shortness of breath, chest pain or palpitations. Denied nausea or vomiting, bowel or bladder control changes. He denies any involvement of upper extremities.? He has shingles that affects his right eye and felt itchyness and takes acyclovir for this. He denies recent trauma or injury.? He has chronic neck and back pain as well as left leg sciatica from getting in and out of his truck. He has been having chiropractic adjustments of his neck and low back and had adjustments this 4 days ago and is scheduled for future visits later this week.? Denied any loss of control of bowel or bladder. Brain CT indicated small-vessel disease but no acute findings, head and neck CTA were negative.? He is afebrile, blood pressure 149/79, heart rate 77, respiratory rate 17, oxygen saturation 95% on room air he weighs 74.8 kg with a BMI of 22.4.? WBC is elevated at 28.2 likely representing his current CLL state, he has no left shift, nonfasting glucose is 143 however his A1c is 5.1 troponin is negative and the rest of his chemistries are unremarkable.? UA is negative for UTI, COVID 19 PCR is negative. Discharge Providers Provider Date of admission: 04/11/22 21:08 Discharge Date: 04/12/22 Primary care physician: Jared Arteaga MD Consults: 04/11/22 22:09 Consult to Occupational Therapy Evaluate & Treat Comment: Physician Instructions: Evaluate and treat Consult to Physical Therapy Evaluate & Treat Comment: Physician Instructions: Evaluate and Treat Consult to Speech Therapy Evaluate & Treat Comment: Physician Instructions: Evaluate and treat Discharge provider: Franklyn Huffman MD Summary Hospital Course Discharge Diagnosis: 1. Transient ischemic attack 2. Paroxysmal atrial fibrillation 3. Possible 6 mm left frontal meningioma noted on CTA 4. Small-vessel ischemic disease on brain MRI 5. Hyperlipidemia 6. Essential hypertension 7. Subclinical elevated TSH ECHO:The left ventricle is normal in size and wall thickness. The ejection fraction is estimated to be 60-65%. No obvious LV thrombus. ? The right ventricle is normal in size and function. ? There is mild tricuspid regurgitation. The right ventricular systolic pressure is estimated to be at least 26 mmHg based on an estimated right atrial pressure of 8 mm Hg. ? Mild atherosclerotic plaque(s) in the aortic arch. ? The patient was in sinus rhythm with heart rates between 66-85 bpm during the exam. Brain MR:1. Age-related volume loss and [id number] small vessel ischemic change. ? 2. No evidence acute stroke, hemorrhage, or mass. Head/neck CTA:1. No CT evidence of acute intracranial abnormalities.? No area of abnormal contrast enhancement.? 6 mm left frontal meningeal. ? 2. No hemodynamically significant stenosis or aneurysm is seen in visualized intracranial circulation. ? 3. No hemodynamically significant stenosis is seen in bilateral neck arteries.? Hospital Course: Patient presented with acute weakness of the left leg which lasted about 1 minute and had resolved by the time he got to the ED. symptoms were consistent and treated as TIA. There were no acute findings on head CT or brain MR. CTA showed no hemodynamic significant stenosis but there was noted an incidental 6 mm left frontal meningioma. Echo showed mild TR and mild plaque in aorta. Patient is already on Eliquis for AFib and had not missed any doses of his blood thinner. Labs noted findings consistent with CLL as well as hyperlipidemia. Al so his TSH is mildly elevated at 4.99. Patient did well and had no recurrence of presenting TIA symptoms. He is being discharged on low-dose aspirin as well as atorvastatin. Status at Discharge Cognitive/behavioral status at discharge: oriented Functional status at discharge: independent ambulation Overall status at discharge: patient is back to baseline Time Spent with Patient Time spent: Greater than 30 minutes Exam Vital Signs (past 8 hours): - 04/12/22 08:00 04/12/22 08:06 04/12/22 08:07 Temperature 97.8 F Pulse Rate 91 H 84 Respiratory Rate 16 Blood Pressure 135/91 H 135/91 H Pulse Oximetry 98 98 Oxygen Delivery Method Room Air 04/12/22 11:46 04/12/22 11:47 04/12/22 11:47 Temperature 97.8 F Pulse Rate 81 81 Respiratory Rate 18 Blood Pressure 137/88 137/88 Pulse Oximetry 97 97 Oxygen Delivery Method 04/12/22 13:51 04/12/22 13:52 04/12/22 13:52 Temperature 97.9 F Pulse Rate 72 Respiratory Rate 12 Blood Pressure 138/71 Pulse Oximetry 96 96 Oxygen Delivery Method Oxygen Delivery Method Room Air Narrative Exam Narrative: General: Alert, NAD Neuro: Affect pleasant/calm, no speech impairment, no facial droop, moves all extremities well, ambulating independently Objective Labs 04/12/22 04:17 04/12/22 04:17 Labs: Laboratory Results - last 24 hr 04/11/22 04/11/22 04/11/22 19:10 19:20 19:20 WBC 28.2 H RBC 4.59 Hgb 13.3 L Hct 39.9 L MCV 87.0 MCH 29.1 MCHC 33.4 RDW 13.0 Plt Count 197 Neut % (Auto) Not Reportable Lymph % (Auto) Not Reportable Beadle % (Auto) Not Reportable Eos % (Auto) Not Reportable Baso % (Auto) Not Reportable Lymph # (Auto) Not Reportable Beadle # (Auto) Not Reportable Baso # (Auto) Not Reportable Total Counted 100 Seg Neutrophils % 15.0 L Lymphocytes % (Manual) 81.0 H Monocytes % (Manual) 2.0 Eosinophils % (Manual) 2.0 Neutrophils # (Manual) 4230 Smudge Cells 1+ H RBC Morphology Normal morphology PT 13.8 H INR 1.2 APTT 34 Sodium Potassium Chloride Carbon Dioxide BUN Creatinine Estimated GFR BUN/Creatinine Ratio Glucose Hemoglobin A1c Calcium Magnesium Total Bilirubin AST ALT Alkaline Phosphatase Total Creatine Kinase CK-MB (CK-2) CK-MB (CK-2) Rel Index Troponin I Total Protein Albumin Globulin Albumin/Globulin Ratio Triglycerides Cholesterol LDL Cholesterol, Calc HDL Cholesterol TSH Urine RBC 1-5/hpf Urine WBC None seen Ur Squamous Epith Cells None seen Urine Bacteria None seen Ur Culture Indicated? Cult not indicated Ethyl Alcohol SARS-CoV-2 (PCR) 04/11/22 04/11/22 04/11/22 19:20 19:20 19:20 WBC RBC Hgb Hct MCV MCH MCHC RDW Plt Count Neut % (Auto) Lymph % (Auto) Beadle % (Auto) Eos % (Auto) Baso % (Auto) Lymph # (Auto) Beadle # (Auto) Baso # (Auto) Total Counted Seg Neutrophils % Lymphocytes % (Manual) Monocytes % (Manual) Eosinophils % (Manual) Neutrophils # (Manual) Smudge Cells RBC Morphology PT INR APTT Sodium 137 Potassium 3.9 Chloride 103 Carbon Dioxide 25 BUN 18 Creatinine 0.82 Estimated GFR > 60 BUN/Creatinine Ratio 22.0 Glucose 143 H Hemoglobin A1c 5.1 Calcium 8.9 Magnesium Total Bilirubin 0.6 AST 31 ALT 24 Alkaline Phosphatase 105 Total Creatine Kinase 103 CK-MB (CK-2) 2.01 CK-MB (CK-2) Rel Index 2.0 Troponin I < 0.012 Total Protein 7.1 Albumin 4.2 Globulin 2.9 Albumin/Globulin Ratio 1.4 Triglycerides Cholesterol LDL Cholesterol, Calc HDL Cholesterol TSH Urine RBC Urine WBC Ur Squamous Epith Cells Urine Bacteria Ur Culture Indicated? Ethyl Alcohol < 10 SARS-CoV-2 (PCR) Negative 04/12/22 04/12/22 04/12/22 00:00 04:17 04:17 WBC 23.8 H RBC 4.56 Hgb 13.1 L Hct 39.8 L MCV 87.3 MCH 28.8 MCHC 33.0 RDW 13.1 Plt Count 189 Neut % (Auto) Not Reportable Lymph % (Auto) Not Reportable Beadle % (Auto) Not Reportable Eos % (Auto) Not Reportable Baso % (Auto) Not Reportable Lymph # (Auto) Not Reportable Beadle # (Auto) Not Reportable Baso # (Auto) Not Reportable Total Counted 100 Seg Neutrophils % 25.0 L D Lymphocytes % (Manual) 73.0 H Monocytes % (Manual) Eosinophils % (Manual) 2.0 Neutrophils # (Manual) 5950 H Smudge Cells 2+ H RBC Morphology Normal morphology PT INR APTT Sodium Potassium Chloride Carbon Dioxide BUN Creatinine Estimated GFR BUN/Creatinine Ratio Glucose Hemoglobin A1c Calcium Magnesium 2.0 Total Bilirubin AST ALT Alkaline Phosphatase Total Creatine Kinase CK-MB (CK-2) CK-MB (CK-2) Rel Index Troponin I Total Protein Albumin Globulin Albumin/Globulin Ratio Triglycerides 117 Cholesterol 199 LDL Cholesterol, Calc 138 H HDL Cholesterol 38 L TSH 4.99 H Urine RBC Urine WBC Ur Squamous Epith Cells Urine Bacteria Ur Culture Indicated? Ethyl Alcohol SARS-CoV-2 (PCR) 04/12/22 04:17 WBC RBC Hgb Hct MCV MCH MCHC RDW Plt Count Neut % (Auto) Lymph % (Auto) Beadle % (Auto) Eos % (Auto) Baso % (Auto) Lymph # (Auto) Beadle # (Auto) Baso # (Auto) Total Counted Seg Neutrophils % Lymphocytes % (Manual) Monocytes % (Manual) Eosinophils % (Manual) Neutrophils # (Manual) Smudge Cells RBC Morphology PT INR APTT Sodium 138 Potassium 4.1 Chloride 104 Carbon Dioxide 24 BUN 16 Creatinine 0.82 Estimated GFR > 60 BUN/Creatinine Ratio 19.5 Glucose 101 Hemoglobin A1c Calcium 9.1 Magnesium Total Bilirubin 0.9 AST 28 ALT 22 Alkaline Phosphatase 94 Total Creatine Kinase CK-MB (CK-2) CK-MB (CK-2) Rel Index Troponin I Total Protein 6.9 Albumin 4.1 Globulin 2.8 Albumin/Globulin Ratio 1.5 Triglycerides Cholesterol LDL Cholesterol, Calc HDL Cholesterol TSH Urine RBC Urine WBC Ur Squamous Epith Cells Urine Bacteria Ur Culture Indicated? Ethyl Alcohol SARS-CoV-2 (PCR) [facility] Medical History (Updated 04/11/22 @ 22:06 by [facility]) Anticoagulated Atrial fibrillation, chronic Bilateral contusion of ribs Chicken pox (1949) Chronic headaches (1944) CLL (chronic lymphocytic leukemia) (1988) Concussion without loss of consciousness, initial encounter Diverticular disease (1995) Essential hypertension Fractures (1992) Hayfever (1960) Hypertension (1990) Migraines (1994) Mumps (1949) Ruptured tympanic membrane (1990) Shoulder pain (1980) Surgical History Anesthesia History of bowel resection (2003) History of colonoscopy with polypectomy (11/28/16) History of hernia repair (~1984) History of surgery (~1993) Hx of prostatectomy Status post appendectomy (2003) Family History Mother Hypertension Grandfather Diabetes mellitus Grandmother Stroke Hypertension Father Bone cancer Grandfather No problems noted. Grandmother No problems noted. Sister Lung cancer Social History household members: none Smoking Status: Never smoker alcohol intake: former Discharge Plan Discharge Plan Patient Disposition: Home Provider Discharge Comment: You were admitted due to TIA. You are being started on low dose aspirin and atorvastatin. Your MRI showed disease of the small blood vessels in the brain. Your ECHO showed mild leakage of the tricuspid valve and some plaque in the aorta. Your CT angiogram did not show any plaque in the major arteries of the neck or brain. There was mention of a possible 6 mm left frontal meningioma which was not seen on MRI. Meningiomas are not uncommon benign tumors that do not typically cause problems unless they are of a large size. Yours is very small and not concerning. Your cholesterol is elevated (LDL 138) - start statin therapy. Your thyroid hormone is slightly abnormal (TSH 4.99, nl 0.47-4.68). Please have TSH rechecked in 1- 2 months. Usually I don't start thyroid replacement therapy for TSH < 8. Discharge orders & Medications Prescriptions: New aspirin 81 mg tablet,delayed release (DR/EC) 81 mg PO BEDTIME Qty: 30 0RF Rx Instructions: OTC atorvastatin 40 mg tablet 40 mg PO BEDTIME Qty: 30 0RF Continued acyclovir 800 mg tablet 800 mg PO TID Label Comments: Patient takes for shingles and cold sores. losartan 100 mg tablet 100 mg PO QDAY Qty: 90 3RF Eliquis 5 mg tablet 5 mg PO BID Follow up/Referrals: Jared Arteaga MD [Primary Care Provider] - Diet/Activity/Treatments Diet: Regular Visit Report/Discharge Packet Stand Alone Forms: Patient Portal/API, Stroke Signs & Symptoms, Work/Release Restrictions Discharge Data Primary Care Provider: Jared Arteaga Attending Provider: Anna Oconnor
== END 2022-04-12 15:15 | disposition home or self-care (01) ==
LOC: ED 20:30 → AC 21:09
PROVIDERS: Admitting Provider Nurse Practitioner Family; Emergency Provider Emergency Medicine; Family Provider Internal Medicine Hematology & Oncology; PCP Student in an Organized Health Care Education/Training Program; Referring Provider Emergency Medicine; Visit Provider Nurse Practitioner Family
DX: G45.9 Transient cerebral ischemic attack, unspecified (principal); R20.0 Anesthesia of skin; R29.700 NIHSS score 0; Z79.01 Long term (current) use of anticoagulants; I10 Essential (primary) hypertension; I48.0 Paroxysmal atrial fibrillation; E78.5 Hyperlipidemia, unspecified; R90.89 Other abnormal findings on diagnostic imaging of central nervous system; Z20.822 Contact with and (suspected) exposure to COVID-19
CPT/HCPCS: 36415; 70450; 70496; 70498; 70551; 80053; 80061; 80320; 81003; 81015; 82550; 82553; 83036; 83735; 84443; 84484; 85007; 85025; 85610; 85730; 87086; 87635; 93005; 93010; 93306; 97530; 99285; C9803; G0378; Q9967

== ENCOUNTER → 2022-09-15 14:58 | Outpatient (CLI) | payer OTHER, MEDICARE, SELFPAY ==
[2022-09-15 15:39] LABS: Add Manual Diff / Slide Review YES; Hematocrit 37.4 % (41-53); Hemoglobin 12.9 g/dL (13.5-17.5); Mean Corpuscular HGB Conc 34.4 % (30-36); Mean Corpuscular Hemoglobin 29.5 PG (26-34); Mean Corpuscular Volume 85.7 fL (80-100); Platelet Count 198 X10^3/uL (150-400); Red Blood Cell Count 4.36 X10^6/uL (4.5-5.9); Red Cell Distribution Width 13.2 % (11.6-14.8); White Blood Cell Count 25.2 X10^3/uL (4.5-11.0)
[2022-09-15 15:52] LABS: Alanine Aminotransferase 36 IU/L (<50); Albumin 4.2 g/dL (3.5-5.0); Albumin Globulin Ratio 1.6 (1.0-2.8); Alkaline Phosphatase 107 U/L (38-126); Aspartate Aminotransferase 41 IU/L (17-59); BUN Creatinine Ratio 27.8 (6-22); Bilirubin Total 0.9 mg/dL (0.2-1.3); Blood Urea Nitrogen 22 mg/dL (9-20); Calcium 8.9 mg/dL (8.4-10.2); Carbon Dioxide 25 mmol/L (22-32); Chloride 105 mmol/L (98-107); Estimated Glomerular Filt Rate > 60 mL/min (>60); Globulin 2.7 g/dL (1.7-4.1); Glucose 93 mg/dL (80-110); HEMOLYSIS < 15 (0-50); Potassium 4.3 mmol/L (3.4-5.1); Sodium 137 mmol/L (137-145); Total Protein 6.9 g/dL (6.3-8.2)
[2022-09-15 15:55] LABS: Neutrophils Absolute Manual 5040 /uL (3000-5900); Total Cells Counted 100
[2022-09-15 15:56] LABS: RBC Morphology Normal Morphology; Smudge Cells 2+
[2022-09-15 16:31] LABS: Prostate Specific Antigen < 0.064 ng/mL (0.10-4.00)
== END ==
PROVIDERS: Family Provider Internal Medicine Hematology & Oncology; PCP Pediatrics; Referring Provider Internal Medicine; Visit Provider Internal Medicine
DX: C91.10 Chronic lymphocytic leukemia of B-cell type not having achieved remission (principal); Z85.46 Personal history of malignant neoplasm of prostate
CPT/HCPCS: 36415; 80053; 84153; 85007; 85025

== ENCOUNTER → 2023-06-20 16:33 | Outpatient (CLI) | payer OTHER, MEDICARE, SELFPAY ==
[2023-06-20 17:37] LABS: Hematocrit 41.6 % (41-53); Hemoglobin 13.8 g/dL (13.5-17.5); Mean Corpuscular HGB Conc 33.1 % (30-36); Mean Corpuscular Hemoglobin 29.5 PG (26-34); Platelet Count 226 X10^3/uL (150-400); Red Blood Cell Count 4.67 X10^6/uL (4.5-5.9)
[2023-06-20 17:47] LABS: Add Manual Diff / Slide Review YES; White Blood Cell Count 32.8 X10^3/uL (4.5-11.0)
[2023-06-20 17:55] LABS: Alanine Aminotransferase 28 IU/L (<50); Albumin 4.6 g/dL (3.5-5.0); Albumin Globulin Ratio 1.6 (1.0-2.8); Alkaline Phosphatase 111 U/L (38-126); Aspartate Aminotransferase 34 IU/L (17-59); Bilirubin Total 0.8 mg/dL (0.2-1.3); Blood Urea Nitrogen 20 mg/dL (9-20); Calcium 9.2 mg/dL (8.4-10.2); Carbon Dioxide 27 mmol/L (22-32); Chloride 106 mmol/L (98-107); Estimated Glomerular Filt Rate > 60 mL/min (>60); Globulin 2.8 g/dL (1.7-4.1); Glucose 74 mg/dL (80-110); HEMOLYSIS < 15 (0-50); Potassium 4.1 mmol/L (3.4-5.1); Sodium 139 mmol/L (137-145); Total Protein 7.4 g/dL (6.3-8.2)
[2023-06-20 18:02] LABS: Neutrophils Absolute Manual 4592 /uL (3000-5900); Total Cells Counted 100
[2023-06-20 18:05] LABS: Acanthocytes 1+; Rouleaux 1+; Smudge Cells 2+
[2023-06-20 18:27] LABS: Prostate Specific Antigen < 0.064 ng/mL (0.10-4.00)
== END ==
PROVIDERS: PCP Family Medicine; Referring Provider Internal Medicine Hematology & Oncology; Visit Provider Internal Medicine Hematology & Oncology
DX: C91.10 Chronic lymphocytic leukemia of B-cell type not having achieved remission (principal)
CPT/HCPCS: 36415; 80053; 84153; 85007; 85025

== ENCOUNTER → 2023-07-25 07:14 | Outpatient (CLI) | payer OTHER, MEDICARE, SELFPAY ==
[2023-07-25 08:46] LABS: Cholesterol 108 mg/dL (140-199); HDL Cholesterol 44 mg/dL (40-60); LDL Cholesterol Calculated 54 mg/dL (<100); Triglycerides 51 mg/dL (35-150)
== END ==
PROVIDERS: PCP Family Medicine; Referring Provider Family Medicine; Visit Provider Family Medicine
DX: Z00.00 Encounter for general adult medical examination without abnormal findings (principal); I10 Essential (primary) hypertension; C91.90 Lymphoid leukemia, unspecified not having achieved remission; I48.20 Chronic atrial fibrillation, unspecified
CPT/HCPCS: 36415; 80061; 83036